=== PATIENT | female | born 1950 | race Caucasian/White ===

== ENCOUNTER → 2016-10-24 | Outpatient (CLI) | payer OTHER ==
[~2016-10-24] MED LIST: CITA20TA4 PO; DICL50TA3 PO; MULT-513 PO; SIMV40TA2 PO; VITACAP37 PO
== END | disposition home or self-care (01) ==
LOC: C.LAB 13:00 → MERGE 13:00
PROVIDERS: ATTEND Family Medicine
DX: Z11.59 Encounter for screening for other viral diseases (principal)

== ENCOUNTER → 2017-02-13 | Outpatient (CLI) | payer OTHER ==
[2017-02-13 17:46] LABS: ALT/SGPT 62 U/L (12-78); BLOOD UREA NITROGEN 13 mg/dl (7-18); BUN/CREATININE RATIO 18.8 (10-20); CALCIUM 8.7 mg/dl (8.5-10.1); CARBON DIOXIDE 24 mmol/L (21-32); CHLORIDE 109 mmol/L (98-107); GLUCOSE 89 mg/dl (70-99); POTASSIUM 4.4 mmol/L (3.5-5.1); SODIUM 141 mmol/L (136-145)
[2017-02-13 17:50] LABS: CHOLESTEROL 194 mg/dl (0-200); HDL CHOLESTEROL 48 mg/dl; LDL CHOLESTEROL CALCULATED 115 mg/dl; TRIGLYCERIDES 153 mg/dl (0-150); VERY LOW DENSITY LIPOPROT CALC 31 mg/dl
== END | disposition home or self-care (01) ==
LOC: C.LABPBG 13:56 → MERGE 13:56
PROVIDERS: ATTEND Family Medicine
DX: E78.00 Pure hypercholesterolemia, unspecified (principal); I10 Essential (primary) hypertension

== ENCOUNTER 2017-06-06 18:33 | Emergency (ER) | payer OTHER ==
[~2017-06-06] VITALS: Ht 160 cm; Wt 96.9 kg
[2017-06-06 18:39] VITALS: TEMP 36.7; Ht 160 cm; Wt 96.9 kg
[2017-06-06] MEDS ORDERED: MULT-513 PO (19:12)
[2017-06-06] MEDS ORDERED: DICL50TA3 PO (19:12)
[2017-06-06] MEDS ORDERED: VITACAP37 PO (19:12)
[2017-06-06] MEDS ORDERED: SIMV40TA2 PO (19:12)
[2017-06-06] MEDS ORDERED: CITA20TA4 PO (19:12)
--- NOTE | 2017-06-06 19:59 | EMERGENCY ROOM VISIT NOTE ---
ED Visit Note First contact with patient: 18:53 CHIEF COMPLAINT: Leg swelling and pain HISTORY OF PRESENT ILLNESS: This 67-year-old female patient presents to the emergency department with complaint of gradual onset of swelling and a steady pain in the left leg since yesterday. There has been no injury to the leg, no fever, and no unusual activity which may have strained a muscle recently. There has not been a long period of immobilization or long car or plane ride recently. There is no history of blood clots in the veins of the legs. Patient reports history of a pinched nerve in her lower back that required surgery many years ago, she has resultant foot drop in her left foot because of this. She states that she gets swelling in both legs intermittently for the past several years, but feels that the swelling in her left leg has been worse the past few days. She denies any chest pain, shortness of breath, palpitations , dizziness or syncope. REVIEW OF SYSTEMS: Head: No headache, injury or neck pain. Neurological: No headache, new changes in mental status, vertigo, focal weakness, numbness. Cardiac: No chest pain, diaphoresis, dyspnea on exertion, orthopnea, or palpitations. Respiratory: No cough, change in sputum, wheezes, hemoptysis, shortness of breath, or stridor. Gastrointestinal: No abdominal pain, blood in stools, diarrhea, loss of appetite, nausea, or vomiting. General: No fever or chills, fatigue, loss of appetite, or significant recent weight gain or loss. PMH: Hyperlipidemia, osteoarthritis, depression. SOCIAL HISTORY: Patient lives at home. PHYSICAL EXAM: Vital Signs: Reviewed Nurse's notes. HEART: Regular rate and rhythm without murmurs, ectopy, gallops, or rubs. LUNGS: Clear to auscultation and breath sounds equal, no wheezes, rales, or rhonchi. ABDOMEN: Soft, non- tender, no hepatosplenomegaly, or masses. NEUROLOGICAL: Alert oriented, coheent. PRERL, EOMs full, gait normal. EXTREMITIES: No cyanosis, edema, joint tenderness or effusion. Pulses equal bilaterally. There is redness, swelling, and tenderness of the calf. No cords can be palpated and Nicholas's sign is negative. The skin of the affected area is warmer than the other leg. There is no lymphangitic streaking. Negative straight leg raise. No midline lumbar spine tenderness to palpation. Normal sensation, strength, reflexes to bilateral lower extremities. EMERGENCY DEPARTMENT COURSE: I examined the patient. Differential diagnosis includes DVT, muscle cramp/spasm, muscle strain/sprain, sciatica. The patient has no exam findings concerning for radiculopathic pain. No red flags on history or exam. Ultrasound exam of the left leg does not show any evidence of deep venous thrombosis or other abnormality. Patient was updated on all results and plan for discharge. She was encouraged to follow up with her PCP regarding her left leg pain. She was also encouraged to wear compression stockings for her bilateral lower extremity swelling. The patient was given return precautions should her symptoms worsen, she verbalized understanding. The patient was discharged home in stable condition and ambulatory. Medication Reconciliation: I attest that I have personally reviewed the patient' s current medication list. Blood pressure screening: The patient was found to have an elevated blood pressure and was referred to their primary doctor for recheck and further treatment. Current/Historical Medications Scheduled Citalopram Hydrobromide (Citalopram Hydrobromide), 1 TAB PO DAILY Diclofenac (Voltaren), 50 MG PO BID Multivitamins/Minerals (Mvi With Minerals), 1 TAB PO DAILY Simvastatin (Zocor), 40 MG PO QAM Vitamin E (E-400), 400 UNITS PO DAILY Allergies Coded Allergies: Amoxicillin (Verified Allergy, Severe, HIVES, 06/06/17) Penicillins (Verified Allergy, Severe, HIVES, 06/06/17) Vital Signs Date Time Temp Pulse Resp B/P (MAP) Pulse Ox O2 Delivery O2 Flow Rate FiO2 06/06/17 21:00 82 18 134/76 93 Room Air 06/06/17 18:39 36.7 90 18 188/106 93 Room Air Departure Information Impression Primary Impression: Leg pain, left Dispostion Home / Self-Care Condition GOOD Referrals Janell Perea MD (PCP) Patient Instructions ED Leg Swelling Bilateral, ED Muscle Pain Leg Cramps, [facility] Additional Instructions Stay off of the left leg as much as possible and keep it elevated. Apply heat to the swollen, sore area frequently over the next 2 days. You may try wearing compression stockings to both legs to help reduce swelling. Apply these first thing in the morning and wear throughout the day to help reduce swelling in your legs. Ibuprofen or Aleve if needed for pain. Take as directed. See your own doctor if the symptoms do not improve.
--- NOTE | 2017-06-06 20:01 | DIAGNOSTIC IMAGING REPORT ---
ULTRASOUND LEFT VENOUS DOPP LOWER EXT UNILAT CLINICAL HISTORY: Left leg swelling PAIN COMPARISON STUDY: No previous studies for comparison. FINDINGS: Real-time and color flow Doppler imaging were performed. Flow was seen within the femoral, popliteal and calf veins with no intraluminal thrombus demonstrated. The saphenous vein is patent. There is a popliteal cyst measuring 46 x 9 x 26 mm. IMPRESSION: No evidence of left lower extremity DVT. Electronically signed by: Sarmad Louis M.D. 06/06/2017 8:00 PM Dictated Date/Time: 06/06/2017 7:59 PM
[2017-06-06 21:00] VITALS: BP 134/76; PULSE 82; O2SAT 93
== END 2017-06-06 21:22 | disposition home or self-care (01) ==
LOC: MERGE 18:36 → C.EDB 18:36 → C.EDC 21:22
DX: M79.605 Pain in left leg (principal); R60.0 Localized edema; E78.5 Hyperlipidemia, unspecified; M19.90 Unspecified osteoarthritis, unspecified site; F32.9 Major depressive disorder, single episode, unspecified

== ENCOUNTER → 2017-06-19 | Outpatient (CLI) | payer OTHER ==
--- NOTE | 2017-06-19 12:05 | DIAGNOSTIC IMAGING REPORT ---
L HIP UNILATERAL 2 VIEWS HISTORY: 67 years-old Female M25.552 Left hip painM54.5 Lumbar painPt with acute on chronic l acute on chronic left hip pain COMPARISON: None available TECHNIQUE: 2 views of the left hip FINDINGS: Mild degenerative changes of the left femoral acetabular joint are noted without acute fracture or dislocation. Mild degenerative changes of the left femoral acetabular joint are also present. IMPRESSION: Mild left hip degenerative changes without acute fracture or dislocation. The above report was generated using voice recognition software. It may contain grammatical, syntax or spelling errors. Electronically signed by: Jese Wolf M.D. 06/19/2017 12:03 PM Dictated Date/Time: 06/19/2017 12:02 PM
--- NOTE | 2017-06-19 12:18 | DIAGNOSTIC IMAGING REPORT ---
L-SPINE MIN 4 VIEWS ROUTINE CLINICAL HISTORY: 67 years-old Female presenting with M25.552 Left hip painM54.5 Lumbar painPt with acute on chronic l. TECHNIQUE: Frontal, bilateral oblique, lateral, and coned in lateral views of the lumbar spine were obtained. COMPARISON: None. FINDINGS: No significant scoliosis. Normal lumbar lordosis. Vertebral bodies maintain normal height and alignment. Intervertebral disc height loss at L3-4. Anterior osteophytosis noted at nearly every level. No radiographic evidence of fracture or subluxation. IMPRESSION: Mild multilevel degenerative changes, most severe at L3-4. Electronically signed by: Noah Townsend M.D. 06/19/2017 12:16 PM Dictated Date/Time: 06/19/2017 12:15 PM
== END | disposition home or self-care (01) ==
LOC: C.RAD1850 11:42
PROVIDERS: ATTEND Family Medicine
DX: M25.552 Pain in left hip (principal); M54.5 Low back pain

== ENCOUNTER → 2017-07-16 | Outpatient (CLI) | payer OTHER | END | disposition home or self-care (01) | LOC: C.LABSPEC 13:08 | PROVIDERS: ATTEND Physician Assistant | DX: J02.9 Acute pharyngitis, unspecified (principal) ==

== ENCOUNTER → 2017-11-05 | Outpatient (CLI) | payer OTHER ==
[~2017-11-05] MED LIST changes: +LEVO1TAB35 PO; +PRVHFAIN INH
[2017-11-05 17:48] LABS: ALT/SGPT 62 U/L (12-78); BLOOD UREA NITROGEN 14 mg/dl (7-18); CALCIUM 9.9 mg/dl (8.5-10.1); CARBON DIOXIDE 25 mmol/L (21-32); CREATININE 0.79 mg/dl (0.60-1.20); GLUCOSE 102 mg/dl (70-99); POTASSIUM 4.1 mmol/L (3.5-5.1); SODIUM 138 mmol/L (136-145)
[2017-11-05 17:52] LABS: CHOLESTEROL 174 mg/dl (0-200); LDL CHOLESTEROL CALCULATED 101 mg/dl
== END ==
LOC: C.LABPBG 13:11
PROVIDERS: ATTEND Family Medicine
DX: E78.00 Pure hypercholesterolemia, unspecified (principal); I10 Essential (primary) hypertension

== ENCOUNTER 2017-11-08 17:44 | Inpatient (IN) | payer OTHER ==
[~2017-11-08] VITALS: Ht 160 cm; Wt 92.4 kg
[~2017-11-08 17:44] MED LIST changes: -LEVO1TAB35 PO; -PRVHFAIN INH
[2017-11-08] MEDS ORDERED: HYDROmorphone INJ 1 MG/ML SYR IV STA (18:09)
[2017-11-08] MEDS ORDERED: ONDANSETRON INJ 2 MG/ML 2 ML VIAL IV STA (18:09)
[2017-11-08] MEDS ORDERED: NICOTINE 21 MG/24 HR TDSY TD STA (18:09)
[2017-11-08] MEDS ORDERED: LIDODERM (LIDOCAINE) PATCH 5% TD STA (18:09)
[2017-11-08] MEDS ORDERED: KETOROLAC TROMETHAMINE 30 MG/ML VIAL IV STA (18:09)
[2017-11-08 18:29] LABS: BASO % 0.1 %; BASO ABS # 0.01 K/uL (0-0.2); HEMATOCRIT 42.3 % (37-47); IG# 0.23 K/uL (0.00-0.02); LYMPH % 6.8 %; LYMPH ABS # 1.29 K/uL (1.2-3.4); MEAN CELL VOLUME 91.6 fL (80-100); MEAN CORPUSCULAR HEMOGLOBIN 32.5 pg (25-34); MEAN CORPUSCULAR HGB CONC 35.5 g/dl (32-36); MEAN PLATELET VOLUME 9.7 fL (7.4-10.4); MONO % 5.6 %; MONO ABS # 1.07 K/uL (0.11-0.59); NEUT % 86.3 %; NEUT ABS # 16.42 K/uL (1.4-6.5); PLATELET COUNT 201 K/uL (130-400); RED CELL DISTRIBUTION WIDTH CV 12.9 % (11.5-14.5); RED CELL DISTRIBUTION WIDTH SD 43.3 fL (36.4-46.3); WHITE BLOOD COUNT 19.02 K/uL (4.8-10.8)
[2017-11-08] MEDS ORDERED: OPTIRAY 320 IV PRN (18:30)
[2017-11-08] MEDS ORDERED: ALBUTEROL 0.083% NEBU SOLN 3 ML VIAL INH STA ×2 (18:57→20:01)
[2017-11-08 19:45] LABS: ALBUMIN 3.4 gm/dl (3.4-5.0); ALKALINE PHOSPHATASE 53 U/L (45-117); ALT/SGPT 36 U/L (12-78); BLOOD UREA NITROGEN 28 mg/dl (7-18); CALCIUM 8.9 mg/dl (8.5-10.1); CARBON DIOXIDE 21 mmol/L (21-32); CKMB 2.1 ng/ml (0.5-3.6); CREATININE 1.07 mg/dl (0.60-1.20); GLUCOSE 116 mg/dl (70-99); LIPASE 54 U/L (73-393); SODIUM 130 mmol/L (136-145); TOTAL PROTEIN 7.8 gm/dl (6.4-8.2)
--- NOTE | 2017-11-08 19:54 | DIAGNOSTIC IMAGING REPORT ---
CT OF THE CHEST WITH IV CONTRAST CLINICAL HISTORY: Right sided chest pain. COMPARISON STUDY: No previous studies for comparison. TECHNIQUE: Following IV administration of 93 mL of Optiray-320, helical axial images of the chest were obtained. Sagittal and coronal reconstructions were viewed as well as maximal intensity projections on an independent 3-D workstation. A dose lowering technique was utilized adhering to the principles of ALARA. CT DOSE: 807.04 mGy.cm FINDINGS: Mildly enlarged right hilar lymph node measures 1.2 cm in short axis. The size of the heart is normal. There is a small hiatal hernia. There is no pericardial effusion. No pneumothorax or pleural effusion is noted. There is extensive dense right lower lobe consolidation which occupies 70% of the right lower lobe. There is no cavitation. Central airways are patent. There is mild lingular opacity. Note is made of mild right upper lobe opacity that measures approximate 1.5 cm. There is no pneumothorax. Bony thorax is unremarkable. Fatty infiltration of the liver is noted. IMPRESSION: 1. Extensive dense right lower lobe consolidation consistent with pneumonia. No central obstructing lesion. A follow-up chest CT in one month to ensure resolution is recommended. 2. Mild right hilar lymphadenopathy which is likely reactive. 3. 1.5 cm subpleural right upper lobe opacity which favors scarring. However, this can be assessed on follow-up CT. 4. Fatty liver. Electronically signed by: Dominick Hackett M.D. 11/08/2017 7:52 PM Dictated Date/Time: 11/08/2017 7:44 PM
[2017-11-08] MEDS ORDERED: CEFEPIME IV 2,000 MG in DEXTROSE 5% 100ML 100 ML IV STA (20:00)
[2017-11-08] MEDS ORDERED: LEVAQUIN 750MG / 150ML D5W IV STA (20:00)
[2017-11-08] MEDS ORDERED: ACETAMINOPHEN 500 MG TAB PO STA (20:11)
[2017-11-08 20:16] LABS: INFLUENZA B ANTIGEN Neg for Influ B (NEG)
--- NOTE | 2017-11-08 20:20 | EMERGENCY ROOM VISIT NOTE ---
History Report prepared by Guerita: Anitra Romo Under the Supervision of: Dr. Manolo Guerrero M.D. First contact with patient: 17:51 Chief Complaint: FLANK PAIN Stated Complaint: RIGHT SIDE PAIN, SHARP History of Present Illness The patient is a 67 year old female who presents to the Emergency Room with complaints of constant right sided flank pain starting last night. The patient states that the pain is more towards her back and does not radiate to the front. She states that it feels sharp. She reports that the pain is worse with coughing and deep breathing. The patient complains of a cough. The patient denies ever having this before. She notes that she smokes 1/2 a pack of cigarettes a day. Source of History: patient Onset: last night Position: other (right flank) Quality: sharp Timing: constant Modifying Factors (Worsening): breathing, other (coughing) Associated Symptoms: + cough Review of Systems See HPI for pertinent positives & negatives. A total of 10 systems reviewed and were otherwise negative. Past Medical & Surgical Medical Problems: (1) Acute respiratory failure with hypoxia (2) Hx of bronchitis (3) Pneumonia involving right lung Surgical Problems: (1) Knee joint replacement status Family History Diabetes mellitus Heart disease Social History Smoking Status: Current Every Day Smoker Alcohol Use: none Marital Status: Housing Status: lives with significant other Occupation Status: unemployed Current/Historical Medications Scheduled Citalopram Hydrobromide (Citalopram Hydrobromide), 1 TAB PO DAILY Diclofenac (Voltaren), 50 MG PO BID Levofloxacin (Levaquin), 750 MG PO DAILY Multivitamins/Minerals (Mvi With Minerals), 1 TAB PO DAILY Simvastatin (Zocor), 40 MG PO QAM Vitamin E (E-400), 400 UNITS PO DAILY Scheduled PRN Albuterol (Ventolin Hfa), 1 PUFF INH Q4 PRN for SOB/Wheezing Allergies Coded Allergies: Amoxicillin (Verified Allergy, Intermediate, HIVES, 11/08/17) Penicillins (Verified Allergy, Intermediate, HIVES, 11/08/17) Physical Exam Vital Signs Date Time Temp Pulse Resp B/P (MAP) Pulse Ox O2 Delivery O2 Flow Rate FiO2 11/08/17 19:45 95 11/08/17 19:20 93 Nasal Cannula 4.0 11/08/17 19:15 87 18 126/70 85 Room Air 11/08/17 17:47 36.9 84 22 130/72 90 Room Air Physical Exam GENERAL: Patient is a healthy-appearing well-nourished HEAD: Normocephalic atraumatic EYES: Ocular movements intact pupils equal and react to light OROPHARYNX mucous membranes are moist no exudates present no erythema or edema present NECK: Supple no nuchal rigidity CHEST: Good equal expansion LUNGS: Clear and equal to auscultation CARDIAC: Normal S1 and S2 ABDOMEN: Soft nontender no guarding BACK: No CVA tenderness. Point tenderness to the right tenth rib area. EXTREMITIES: No pain upon palpation normal muscle strength in all groups no clubbing cyanosis or edema NEURO: Patient is following commands and answering questions appropriately. Alert and oriented x3 Cranial Nerves 2-12 grossly intact Medical Decision & Procedures ER Provider Diagnostic Interpretation: Radiology results as stated below per my review and radiologist interpretation: CT OF THE CHEST WITH IV CONTRAST CLINICAL HISTORY: Right sided chest pain. COMPARISON STUDY: No previous studies for comparison. TECHNIQUE: Following IV administration of 93 mL of Optiray-320, helical axial images of the chest were obtained. Sagittal and coronal reconstructions were viewed as well as maximal intensity projections on an independent 3-D workstation. A dose lowering technique was utilized adhering to the principles of ALARA. CT DOSE: 807.04 mGy.cm FINDINGS: Mildly enlarged right hilar lymph node measures 1.2 cm in short axis. The size of the heart is normal. There is a small hiatal hernia. There is no pericardial effusion. No pneumothorax or pleural effusion is noted. There is extensive dense right lower lobe consolidation which occupies 70% of the right lower lobe. There is no cavitation. Central airways are patent. There is mild lingular opacity. Note is made of mild right upper lobe opacity that measures approximate 1.5 cm. There is no pneumothorax. Bony thorax is unremarkable. Fatty infiltration of the liver is noted. IMPRESSION: 1. Extensive dense right lower lobe consolidation consistent with pneumonia. No central obstructing lesion. A follow-up chest CT in one month to ensure resolution is recommended. 2. Mild right hilar lymphadenopathy which is likely reactive. 3. 1.5 cm subpleural right upper lobe opacity which favors scarring. However, this can be assessed on follow-up CT. 4. Fatty liver. Electronically signed by: Dominick Hackett M.D. 11/08/2017 7:52 PM Dictated Date/Time: 11/08/2017 7:44 PM Laboratory Results Test 11/08/17 18:05 11/08/17 18:09 11/08/17 18:19 11/08/17 19:15 Total Bilirubin 1.4 mg/dl (0.2-1) Direct Bilirubin mg/dl (0-0.2) Aspartate Amino Transf (AST/SGOT) U/L (15-37) Alanine Aminotransferase (ALT/SGPT) 36 U/L (12-78) Alkaline Phosphatase 53 U/L (45-117) Total Creatine Kinase U/L (26-192) Creatine Kinase MB 2.1 ng/ml (0.5-3.6) Troponin I < 0.015 ng/ml (0-0.045) Total Protein 7.8 gm/dl (6.4-8.2) Albumin 3.4 gm/dl (3.4-5.0) Lipase 54 U/L (73-393) Creatine Kinase MB Ratio (0-3.0) Urine Color DK YELLOW Urine Appearance CLOUDY (CLEAR) Urine pH 5.0 (4.5-7.5) Urine Specific [place] 1.024 (1.000-1.030) Urine Protein 1+ (NEG) Urine Glucose (UA) NEG (NEG) Urine Ketones TRACE (NEG) Urine Occult Blood TRACE (NEG) Urine Nitrite NEG (NEG) Urine Bilirubin NEG (NEG) Urine Urobilinogen NEG (NEG) Urine Leukocyte Esterase NEG (NEG) Urine WBC (Auto) 1-5 /hpf (0-5) Urine RBC (Auto) 0-4 /hpf (0-4) Urine Hyaline Casts (Auto) /lpf (0-5) Urine Epithelial Cells (Auto) >30 /lpf (0-5) Urine Bacteria (Auto) NEG (NEG) Urine Pathogenic Casts /lpf (0) Influenza Type A Antigen Neg for Influ A (NEG) Influenza Type B Antigen Neg for Influ B (NEG) Labs reviewed by ED physician. Medications Administered Medications (Trade) Dose Ordered Sig/Lefty Route Start Time Stop Time Status Last Admin Dose Admin Lidocaine (Lidoderm Patch 5%) 1 patch NOW STAT TD 11/08/17 18:09 11/08/17 18:13 DC 11/08/17 19:13 1 PATCH Nicotine (Nicoderm Cq 21MG Patch) 1 patch NOW STAT TD 2/22/18 18:09 11/08/17 18:13 DC 11/08/17 18:34 1 PATCH Ketorolac Tromethamine (Toradol Inj) 30 mg NOW STAT IV 11/08/17 18:09 11/08/17 18:13 DC 11/08/17 18:33 30 MG Hydromorphone HCl (Dilaudid Inj) 1 mg NOW STAT IV 11/08/17 18:09 11/08/17 18:13 DC 11/08/17 18:34 1 MG Ondansetron HCl (Zofran Inj) 4 mg NOW STAT IV 11/08/17 18:09 11/08/17 18:13 DC 11/08/17 18:33 4 MG Albuterol Sulfate (Ventolin 0.083% 2.5MG/3ML Neb) 2.5 mg NOW STAT INH 11/08/17 18:57 11/08/17 18:58 DC 11/08/17 19:35 2.5 MG Cefepime HCl 2000 mg/Dextrose 122 ml @ 200 mls/hr NOW STAT IV 11/08/17 20:00 11/08/17 20:36 DC 11/08/17 20:23 200 MLS/HR Levofloxacin (Levaquin / D5W) 750 mg NOW STAT IV 11/08/17 20:00 11/08/17 20:01 DC 11/08/17 20:24 750 MG Albuterol Sulfate (Ventolin 0.083% 2.5MG/3ML Neb) 2.5 mg NOW STAT INH 11/08/17 20:01 11/08/17 20:02 DC 11/08/17 20:23 2.5 MG Acetaminophen (Tylenol Tab) 1,000 mg NOW STAT PO 11/08/17 20:11 11/08/17 20:12 DC 11/08/17 20:23 1,000 MG Vancomycin HCl (Vancomycin 1gm/ 270ml Nss) 1 gm NOW STAT IV 11/08/17 20:30 11/08/17 20:31 DC 11/08/17 22:47 1 GM ECG Per My Interpretation Indication: chest pain Rate (beats per minute): 116 Rhythm: sinus tachycardia Findings: other (no ST elevation or depression, normal axis) ED Course 180: Past medical records reviewed. The patient was evaluated in room A11B. A complete history and physical examination was performed. 1808: Ordered Zofran Inj 4 mg IV, Dilaudid Inj 1 mg IV, Toradol Inj 30 mg IV, Nicotine 1 patch TD, Lidocaine 1 patch TD. 1856: Ordered Albuterol Sulfate 2.5 mg INH. 1999: Ordered Levofloxacin 750 mg IV, Cefepime HCl 2000 mg/ Dextrose 122 ml @ 200 mls/hr IV. 2000: Ordered Albuterol Sulfate 2.5 mg INH. 2004: I reevaluated the patient and she is still requiring oxygen. 2010: Ordered Tylenol Tab 1000 mg PO. 2027: I discussed the patient's case with Dr. Manan LOYOLA Hospitalist, he has agreed to evaluate the patient for further management and care. 2029: Ordered Vancomycin HCl 1 gm IV. Medical Decision Differential diagnosis: Etiologies such as cardiac ischemia, aortic dissection, pulmonary embolism, pneumonia, pneumothorax, musculoskeletal, infections, pericarditis, myocarditis , esophageal rupture, gastrointestinal, as well as others were entertained. This is a 67-year-old female who presents emergency department complaining of right-sided chest pain. The patient was sent for CAT scan of the chest and appears to have a large pneumonia on CAT scan. She had a Lidoderm patch placed. The patient was pain cultured and started on Zosyn as well as Levaquin as well as vancomycin. She was also given Toradol and Dilaudid for the pain. The patient is requiring oxygen here in the emergency department therefore I did discuss the case with the hospitalist service who agreed to admit the patient. Patient was in agreement with the treatment plan. Medication Reconcilliation Current Medication List: was personally reviewed by me Blood Pressure Screening Patient's blood pressure: Normal blood pressure Blood pressure disposition: Did not require urgent referral Consults Time Called: 2019 Consulting Physician: Dr. Manan LOYOLA Hospitalist Returned Call: 2027 I discussed the patient's case with Dr. Manan LOYOLA Hospitalist, he has agreed to evaluate the patient for further management and care. Impression Primary Impression: Pneumonia Scribe Attestation The scribe's documentation has been prepared under my direction and personally reviewed by me in its entirety. I confirm that the note above accurately reflects all work, treatment, procedures, and medical decision making performed by me. Departure Information Dispostion Being Evaluated By Hospitalist Prescriptions Albuterol (Ventolin Hfa) 60 Puffs/5400 Mcg Aers 1 PUFF INH Q4 Y for SOB/Wheezing, #1 INHALER Prov: Hernandez Fox D.OCarmel 11/09/17 Levofloxacin (Levaquin) 750 Mg Tab 750 MG PO DAILY, #10 TAB Prov: Hernandez Fox D.O. 11/09/17 Referrals Janell Perea MD (PCP) Patient Instructions [facility] Problem Qualifiers Primary Impression: Pneumonia Pneumonia type: due to unspecified organism Laterality: unspecified laterality Lung location: unspecified part of lung Qualified Codes: J18.9 - Pneumonia, unspecified organism
[2017-11-08] MEDS ORDERED: VANCOMYCIN 1GM/270ML NSS IV STA (20:30)
[2017-11-08] MEDS ORDERED: MAGNESIUM HYDROXIDE SUSP 30 ML UDC PO PRN (20:45)
[2017-11-08] MEDS ORDERED: ACETAMINOPHEN 325 MG TAB PO PRN (20:45)
[2017-11-08] MEDS ORDERED: ALUMINUM/MAGNESIUM/SIMETH (MAALOX MAX) 30 ML UDC PO PRN (20:45)
[2017-11-08] MEDS ORDERED: ZOLPIDEM TARTRATE 5 MG TAB PO PRN (20:45)
[2017-11-08] MEDS ORDERED: POLYETHYLENE (MIRALAX) 17 GM PACK PO PRN (20:45)
[2017-11-08] MEDS ORDERED: VANCOMYCIN CONSULT ACTIVE PRN (21:00)
[2017-11-08] MEDS ORDERED: LEVALBUTEROL/IPRATROPIUM NEB INH SCH (21:00)
[2017-11-08] MEDS ORDERED: ONDANSETRON INJ 2 MG/ML 2 ML VIAL IV PRN (21:00)
[2017-11-08] MEDS ORDERED: CEFEPIME IV 1,000 MG in DEXTROSE 5% 100ML 100 ML IV SCH (21:00)
[2017-11-08] MEDS ORDERED: ONDANSETRON 8MG OD TAB PO PRN (21:00)
[2017-11-08] MEDS ORDERED: VANCOMYCIN 1GM/270ML NSS ONE ×2 (22:42→22:46)
--- NOTE | 2017-11-08 22:49 | History and Physical ---
History & Physical Date & Time of Service: Nov 08, 2017 at 22:49 Chief Complaint: Right Side Pain, Sharp Primary Care Physician: Janell Perea MD History of Present Illness Source: patient, family, spouse The patient is a 67-year-old female who presents to the emergency department with persistent sharp right sided flank pain radiating toward her back, worse with inspiration and coughing, that began since the previous evening. She has not had this type of pain before. She smokes one half pack per day. Family History Diabetes mellitus Heart disease Social History Smoking Status: Current Every Day Smoker Smokeless Tobacco Use: No Alcohol Use: none Drug Use: none Marital Status: Housing status: lives with family Occupational Status: unemployed Immunizations History of Influenza Vaccine: Unknown History of Tetanus Vaccine?: Unknown History of Pneumococcal: Unknown History of Hepatitis B Vaccine: Unknown Multi-Drug Resistant Organisms History of MDRO: No Allergies Coded Allergies: Amoxicillin (Verified Allergy, Intermediate, HIVES, 11/08/17) Penicillins (Verified Allergy, Intermediate, HIVES, 11/08/17) Home Medications Scheduled Citalopram Hydrobromide (Citalopram Hydrobromide), 1 TAB PO DAILY Diclofenac (Voltaren), 50 MG PO BID Multivitamins/Minerals (Mvi With Minerals), 1 TAB PO DAILY Simvastatin (Zocor), 40 MG PO QAM Vitamin E (E-400), 400 UNITS PO DAILY Review of Systems The patient denies chest pain, palpitations, lower extremity swelling, sore throat, fevers, chills, sweats, weight change, fatigue, nausea, vomiting, diarrhea , constipation, abdominal pain, pelvic pain, blood in urine or stool, dysuria, urinary frequency or urgency, lightheadedness , dizziness, headache, memory loss, loss of consciousness, rash, abnormal bruising or bleeding, imbalance, focal or generalized weakness, numbness or tingling in arms or legs, generalized arthralgias or myalgias, neck pain, or night sweats. The review of systems is otherwise negative other than for that already noted above, and at least 10 systems have been reviewed. Physical Exam Vital Signs Date Time Temp Pulse Resp B/P (MAP) Pulse Ox O2 Delivery O2 Flow Rate FiO2 11/08/17 19:45 95 11/08/17 19:20 93 Nasal Cannula 4.0 11/08/17 19:15 87 18 126/70 85 Room Air 11/08/17 17:47 36.9 84 22 130/72 90 Room Air The patient is awake, alert and oriented 3, well developed and well nourished, normocephalic and atraumatic, lying in bed and in no acute distress. HEENT--PERRL, EOMI, mucous membranes and oropharynx mildly dry. Neck--supple. No JVD. No bruits. Thyroid normal, trachea midline, no adenopathy. Heart--normal S1 and S2. No murmurs, rubs or gallops. Lungs--decreased breath sounds right base, scattered coarse breath sounds, no respiratory distress, no accessory muscle use. Abdomen--normal bowel sounds and soft. Nontender. Nondistended, no hernias or masses. Extremities--no cyanosis or clubbing. No edema. There are good distal pulses b/ l. Dermatologic--normal skin turgor, normal color, no abnormal lymph nodes, no rash. Neurologic--cranial nerves II through XII grossly intact. Rheumatologic--normal range of motion. Psychiatric--normal affect. Diagnostics Laboratory Results Results Past 24 Hours Test 11/08/17 17:52 11/08/17 18:05 11/08/17 18:09 11/08/17 18:19 Range/Units Creatine Kinase MB Ratio 0-3.0 White Blood Count 19.02 4.8-10.8 K/uL Red Blood Count 4.62 4.2-5.4 M/uL Hemoglobin 15.0 12.0-16.0 g/dL Hematocrit 42.3 37-47 % Mean Corpuscular Volume 91.6 80-100 fL Mean Corpuscular Hemoglobin 32.5 25-34 pg Mean Corpuscular Hemoglobin Concent 35.5 32-36 g/dl Platelet Count 201 130-400 K/uL Mean Platelet Volume 9.7 7.4-10.4 fL Neutrophils (%) (Auto) 86.3 % Lymphocytes (%) (Auto) 6.8 % Monocytes (%) (Auto) 5.6 % Eosinophils (%) (Auto) 0.0 % Basophils (%) (Auto) 0.1 % Neutrophils # (Auto) 16.42 1.4-6.5 K/uL Lymphocytes # (Auto) 1.29 1.2-3.4 K/uL Monocytes # (Auto) 1.07 0.11-0.59 K/uL Eosinophils # (Auto) 0.00 0-0.5 K/uL Basophils # (Auto) 0.01 0-0.2 K/uL RDW Standard Deviation 43.3 36.4-46.3 fL RDW Coefficient of Variation 12.9 11.5-14.5 % Immature Granulocyte % (Auto) 1.2 % Immature Granulocyte # (Auto) 0.23 0.00-0.02 K/uL Sodium Level 130 136-145 mmol/L Potassium Level 3.5-5.1 mmol/L Chloride Level 98 98-107 mmol/L Carbon Dioxide Level 21 21-32 mmol/L Anion Gap 11.0 3-11 mmol/L Blood Urea Nitrogen 28 7-18 mg/dl Creatinine 1.07 0.60-1.20 mg/dl Est Creatinine Clear Calc Drug Dose 53.6 ml/min Estimated GFR () 61.3 Estimated GFR (Non- 52.9 BUN/Creatinine Ratio 26.0 10-20 Random Glucose 116 70-99 mg/dl Calcium Level 8.9 8.5-10.1 mg/dl Total Bilirubin 1.4 0.2-1 mg/dl Direct Bilirubin 0-0.2 mg/dl Aspartate Amino Transf (AST/SGOT) 15-37 U/L Alanine Aminotransferase (ALT/SGPT) 36 12-78 U/L Alkaline Phosphatase 53 45-117 U/L Total Creatine Kinase 26-192 U/L Creatine Kinase MB 2.1 0.5-3.6 ng/ml Troponin I < 0.015 0-0.045 ng/ml Total Protein 7.8 6.4-8.2 gm/dl Albumin 3.4 3.4-5.0 gm/dl Lipase 54 73-393 U/L Urine Color DK YELLOW Urine Appearance CLOUDY CLEAR Urine pH 5.0 4.5-7.5 Urine Specific Goff 1.024 1.000-1.030 Urine Protein 1+ NEG Urine Glucose (UA) NEG NEG Urine Ketones TRACE NEG Urine Occult Blood TRACE NEG Urine Nitrite NEG NEG Urine Bilirubin NEG NEG Urine Urobilinogen NEG NEG Urine Leukocyte Esterase NEG NEG Urine WBC (Auto) 1-5 0-5 /hpf Urine RBC (Auto) 0-4 0-4 /hpf Urine Hyaline Casts (Auto) 0-5 /lpf Urine Epithelial Cells (Auto) >30 0-5 /lpf Urine Bacteria (Auto) NEG NEG Urine Pathogenic Casts 0 /lpf Test 11/08/17 19:15 11/08/17 22:28 Range/Units Influenza Type A Antigen Neg for Influ A NEG Influenza Type B Antigen Neg for Influ B NEG Microbiology Results 11/08/17 Blood Culture, Received Pending 11/08/17 Blood Culture, Received Pending Diagnostic Radiology Patient Name: CAMILO BATISTA Unit Number: [id number] Dictated: 11/08/171943 Transcribed: 11/08/171943 DELON Printed Date/Time: [~ rep prt dt]/[~ rep prt tm] [~ rep ct labl] - [~ rep ct ivnm] [facility] Radiology Department [place], [place] [id number] Dictated: 11/08/171943 Transcribed: 11/08/171943 JA Printed Date/Time: [~ rep prt dt]/[~ rep prt tm] [~ rep ct labl] - [~ rep ct ivnm] [~ rep ct add3]] CT OF THE CHEST WITH IV CONTRAST CLINICAL HISTORY: Right sided chest pain. COMPARISON STUDY: No previous studies for comparison. TECHNIQUE: Following IV administration of 93 mL of Optiray-320, helical axial images of the chest were obtained. Sagittal and coronal reconstructions were viewed as well as maximal intensity projections on an independent 3-D workstation. A dose lowering technique was utilized adhering to the principles of ALARA. CT DOSE: 807.04 mGy.cm FINDINGS: Mildly enlarged right hilar lymph node measures 1.2 cm in short axis. The size of the heart is normal. There is a small hiatal hernia. There is no pericardial effusion. No pneumothorax or pleural effusion is noted. There is extensive dense right lower lobe consolidation which occupies 70% of the right lower lobe. There is no cavitation. Central airways are patent. There is mild lingular opacity. Note is made of mild right upper lobe opacity that measures approximate 1.5 cm. There is no pneumothorax. Bony thorax is unremarkable. Fatty infiltration of the liver is noted. IMPRESSION: 1. Extensive dense right lower lobe consolidation consistent with pneumonia. No central obstructing lesion. A follow-up chest CT in one month to ensure resolution is recommended. 2. Mild right hilar lymphadenopathy which is likely reactive. 3. 1.5 cm subpleural right upper lobe opacity which favors scarring. However, this can be assessed on follow-up CT. 4. Fatty liver. Electronically signed by: Dominick Hackett M.D. 11/08/2017 7:52 PM Dictated Date/Time: 11/08/2017 7:44 PM The status of this report is Signed. Draft = Not yet reviewed or approved by Radiologist. Signed = Reviewed and approved by Radiologist. <AttendingPhy></AttendingPhy> <FamilyPhy>Janell Perea MD</FamilyPhy> < PrimaryPhy>Janell Perea MD</PrimaryPhy> <UnitNumber>[id number]</UnitNumber > <VisitNumber>[id number]</VisitNumber> <PatientName>CAMILO BATISTA</ PatientName> <DateOfBirth>1950</DateOfBirth> <Location>[facility]</Location> < ServiceDate>11/08/17</ServiceDate> <MNE>ESINDI</MNE> <OrderingPhy>Manolo Guerrero MD</OrderingPhy> <OrderingPhyMNE>f rep ord dr courtney</OrderingPhyMNE> < DictatingPhyMNE>f rep dict dr courtney</DictatingPhyMNE> <CCListMNE>f rep ct roz</ CCListMNE> <AdmittingPhyMNE>f pt admit dr courtney</AdmittingPhyMNE> <AttendingPhyMNE >f pt attend dr courtney</AttendingPhyMNE> <ConsultingPhyMNE>f pt consult dr courtney</ConsultingPhyMNE> <FamilyPhyMNE>f pt fam dr courtney</FamilyPhyMNE> <OtherPhyMNE>f pt other dr courtney</OtherPhyMNE> < PrimaryPhyMNE>f pt prim care dr courtney</PrimaryPhyMNE> <ReferringPhyMNE>f pt referring dr courtney</ReferringPhyMNE> EKG EKG shows sinus tachycardia at 119 bpm, PACs, no acute ST-T changes. Impression Assessment and Plan Acute respiratory failure with hypoxia/pneumonia involving right lower lobe/ tobacco use disorder/1.5 cm lesion right upper lobe-- Telemetry admission to monitor oxygen status. Vancomycin IV per pharmacokinetic monitoring Cefepime 1 g IV every 8 hours Levofloxacin 500 mg IV every 24 hours Duonebs every 4 hours while awake and every 2 hours when necessary. Solu-Medrol 40 mg IV every 8 hours Guaifenesin extended release 600 mg by mouth twice a day Nasal cannula oxygen titrate to keep pulse ox greater than or equal to 92% Sputum Gram stain and culture. Tobacco cessation counseling. Consider recommendation to pulmonary nodule program regarding right upper lobe lesion. Depression-- Continue citalopram daily Hyperlipidemia-- Continue simvastatin 40 mg daily. Recommend discontinuing vitamin E due to interaction issue with statin. Arthritis-- Continue Voltaren 50 mg p.o. twice daily Fatty liver-- Normal liver enzymes. May be related to obesity. Check a fasting lipid profile and hemoglobin A1c. Level of Care Telemetry Advanced Directives Existing Advance Directive: No Existing Living Will: No Existing Power of Data Control Clerk Supervisor: No Resuscitation Status FULL RESUSCITATION VTE Prophylaxis VTE Risk Assessment Done? Y/N: Yes Risk Level: Moderate Given or contraindicated: Unfractionated heparin SQ Social Service Consult None Apply
[2017-11-08 22:54] LABS: INR 1.1 (0.9-1.1); PTT PATIENT 31.9 SECONDS (21.0-31.0)
[2017-11-09] VITALS (8 sets, daily range): BP systolic 99–112; BP diastolic 58–74; PULSE 75–89; TEMP 36.4–36.9; O2SAT 92–96; Ht 160 cm; Wt 92.4 kg
[2017-11-09] MEDS ORDERED: IPRATROPIUM BROMIDE NEB SOLN 0.02% 2.5 ML VIAL INH PRN (00:30)
[2017-11-09] MEDS ORDERED: LEVALBUTEROL 1.25MG/0.5ML NEB INH PRN (00:30)
[2017-11-09] MEDS ORDERED: VANCOMYCIN INJ 1,000 MG in SODIUM CHLORIDE 0.9% 250ML 250 ML IV SCH (01:00)
[2017-11-09] MEDS ORDERED: CEFEPIME CONSULT ACTIVE PRN (01:15)
[2017-11-09] MEDS: DICLOFENAC SOD 25 MG TABEC PO SCH ×2 (01:29→07:40)
[2017-11-09] MEDS: METHYLPREDNISOLONE IV 40 MG in SYRINGE 0 ML IV SCH ×2 (01:29→07:40)
[2017-11-09] MEDS: GUAIFENESIN 600 MG TABCR PO SCH ×2 (01:29→07:40)
[2017-11-09] MEDS: LEVALBUTEROL 1.25MG/0.5ML NEB INH SCH ×2 (01:55→07:06)
[2017-11-09] MEDS: IPRATROPIUM BROMIDE NEB SOLN 0.02% 2.5 ML VIAL INH SCH ×2 (01:55→07:06)
[2017-11-09] MEDS ORDERED: INFLUENZA ADMINISTRATION CHARGE ONE (04:15)
[2017-11-09] MEDS ORDERED: INFLUENZA VACCINE HIGH DOSE 65+ 0.5 ML SYR IM. ONE (04:15)
[2017-11-09 06:17] LABS: HEMATOCRIT 40.2 % (37-47); HEMOGLOBIN 14.1 g/dL (12.0-16.0); MEAN CELL VOLUME 92.2 fL (80-100); MEAN CORPUSCULAR HEMOGLOBIN 32.3 pg (25-34); MEAN CORPUSCULAR HGB CONC 35.1 g/dl (32-36); MEAN PLATELET VOLUME 9.8 fL (7.4-10.4); PLATELET COUNT 193 K/uL (130-400); RED CELL DISTRIBUTION WIDTH CV 13.1 % (11.5-14.5); RED CELL DISTRIBUTION WIDTH SD 44.1 fL (36.4-46.3); WHITE BLOOD COUNT 15.43 K/uL (4.8-10.8)
[2017-11-09 06:45] LABS: BASO % 0.1 %; BASO ABS # 0.01 K/uL (0-0.2); EOS % 0.1 %; EOS ABS # 0.01 K/uL (0-0.5); IG# 0.07 K/uL (0.00-0.02); LYMPH % 4.7 %; LYMPH ABS # 0.73 K/uL (1.2-3.4); MONO % 4.8 %; MONO ABS # 0.74 K/uL (0.11-0.59); NEUT % 89.8 %; NEUT ABS # 13.87 K/uL (1.4-6.5)
[2017-11-09 06:48] LABS: CALCIUM 8.9 mg/dl (8.5-10.1); CREATININE 1.03 mg/dl (0.60-1.20); POTASSIUM 3.6 mmol/L (3.5-5.1)
[2017-11-09 07:16] LABS: HEMOGLOBIN A1C 6.3 % (4.5-5.6)
[2017-11-09] MEDS ORDERED: CEFEPIME IV 2,000 MG in SYRINGE 7.5 ML IV SCH (08:00)
[2017-11-09] MEDS ORDERED: ENOXAPARIN 40 MG/0.4 ML SYR SC SCH (09:00)
[2017-11-09] MEDS ORDERED: SIMVASTATIN 40 MG TAB PO SCH (09:00)
[2017-11-09] MEDS ORDERED: CEROVITE ADV FORMULA TAB PO SCH (09:00)
[2017-11-09] MEDS ORDERED: CITALOPRAM 20 MG TAB PO SCH (09:00)
[2017-11-09] MEDS ORDERED: PRVHFAIN INH (09:50)
[2017-11-09] MEDS ORDERED: LEVO1TAB35 PO (09:50)
--- NOTE | 2017-11-09 09:59 | Discharge Instructions ---
Discharge Instructions Date of Service Nov 09, 2017. Admission Reason for Admission: Acute Respiratory Failure With Hypoxia, Pneumonia Discharge Discharge Diagnosis / Problem: pneumonia Discharge Goals Goal(s): Diagnostic testing, Therapeutic intervention Activity Recommendations Activity Limitations: resume your previous activity . Instructions / Follow-Up Instructions / Follow-Up pneumonia -you are fortunately getting better way faster than expected, and it is safe to get you home -we'll need to continue antibiotics to clear the infection - it's always difficult to tell duration of antibiotics because while we used to treat everyone for 10-14 days, we've seen more and more through research that some pneumonias get better in as little as 5-7 days. to balance this, the prescription is for 10 more days (next dose tonight), but as you follow up at Dr Perea's office next week, if you're really doing well she can shorten the duration of the antibiotics appropriately (or conversely, if you're doing worse than expected, they can lengthen the course of antibiotics if needed)(as we discussed, levaquin usually is well tolerated; if it makes you sick to your stomach take it with food. a weird rare side effect is that it can make people more prone to tendonitis or even a tendon tear - again very rare - but for the next month or so take it easy, refrain from any heavy lifting/overhead lifting/ endurance activities etc) -use the albuterol inhaler as needed for shortness of breath, tight cough, wheezing, or feeling like you can't bring something up (it opens up airways to allow better airflow; it can make you feel jittery or anxious for a little after taking) -one of the most common problems we see after pneumonias is people simply not realizing how long it can take to get better, and then seeking care for really what amounts to normal pace of recovery. the most common scenario is that for the next few days the cough may get worse before it gets better (as your immune system and the antibiotics kill the bacteria, often the pus has to make it's way out of your lungs, so the cough picks up and looks "yuckier" - this is about 80% of people), then the cough often will take several weeks to totally go away. most notoriously, the fatigue after a pneumonia can take a solid 4-6 weeks to resolve. you'll have day-to-day improvement, but often that is so slow that it's hard to see - better is to tar kettle runner your improvement in 3-4 day intervals, giving yourself enough time to truly see improvement (usually this fatigue is just a nonspecific "i've been off the antibiotics and the cough is getting better, why do i just feel so washed out and tired all the time?!" and it does get better, it just usually takes way longer than people anticipate) stop smoking!!! this is critical to keeping you from getting more and more of these kinds of illnesses. throw away the cigarettes, lighters, etc to make it harder on yourself to restart; by next week if stopping has been a struggle, then talk w Dr Perea about what other things she can do to help. in about 6 weeks have her get pulmonary function tests (where you blow out and it's measured, you breathe in and it's measured, etc) -- this is to look for evidence of COPD ("smoker's lung") which, if present, is usually pretty easy to manage but will allow Dr Newberry to do a few simple things (usually with inhalers) to help keep your breathing from getting into trouble we'll want to get follow up labwork on you next week (CBC) that can be done at your follow up visit with Dr Newberry. this is simply to ensure that your white blood cells (up with infection) have gotten back to normal Current Hospital Diet Patient's current hospital diet: Regular Diet Discharge Diet Recommended Diet: Regular Diet Pending Studies Studies pending at discharge: no Laboratory Results Hemoglobin A1c Test 11/09/17 05:22 Range/Units Estimated Average Glucose 134 mg/dl Hemoglobin A1c 6.3 H 4.5-5.6 % Lipid Panel Test 11/09/17 05:22 Range/Units Triglycerides Level 171 H 0-150 mg/dl Cholesterol Level 114 0-200 mg/dl HDL Cholesterol 14 mg/dl Cholesterol/HDL Ratio 8.1 LDL Cholesterol, Calculated 66 mg/dl Medical Emergencies . Who to Call and When: Medical Emergencies: If at any time you feel your situation is an emergency, please call 911 immediately. . Non-Emergent Contact Non-Emergency issues call your: Primary Care Provider . . "Provider Documentation" section prepared by Hernandez Fox. . VTE Core Measure Inpt VTE Proph given/why not?: Unfractionated heparin SQ
[2017-11-09] MEDS ORDERED: VANCOMYCIN INJ 1,250 MG in SODIUM CHLORIDE 0.9% 250ML 250 ML IV SCH (16:00)
[2017-11-09] MEDS ORDERED: LEVOFLOXACIN / D5W 500 MG in PREMIXED IN D5W 100 ML IV SCH (20:00)
--- NOTE | 2017-11-09 20:11 | Discharge Summary ---
Discharge Summary Date of Service Nov 09, 2017. Discharge Summary Admission Date: Nov 08, 2017 at 20:43 Discharge Date: Nov 09, 2017 Discharge Disposition: Home Principal Diagnosis: community acquired pneumonia w sepsis present on admission Immunizations: Have You Had Influenza Vaccine: Unknown History of Tetanus Vaccine?: Unknown History of Pneumococcal: Unknown History of Hepatitis B Vaccine: Unknown Procedures: CT OF THE CHEST WITH IV CONTRAST CLINICAL HISTORY: Right sided chest pain. COMPARISON STUDY: No previous studies for comparison. TECHNIQUE: Following IV administration of 93 mL of Optiray-320, helical axial images of the chest were obtained. Sagittal and coronal reconstructions were viewed as well as maximal intensity projections on an independent 3-D workstation. A dose lowering technique was utilized adhering to the principles of ALARA. CT DOSE: 807.04 mGy.cm FINDINGS: Mildly enlarged right hilar lymph node measures 1.2 cm in short axis. The size of the heart is normal. There is a small hiatal hernia. There is no pericardial effusion. No pneumothorax or pleural effusion is noted. There is extensive dense right lower lobe consolidation which occupies 70% of the right lower lobe. There is no cavitation. Central airways are patent. There is mild lingular opacity. Note is made of mild right upper lobe opacity that measures approximate 1.5 cm. There is no pneumothorax. Bony thorax is unremarkable. Fatty infiltration of the liver is noted. IMPRESSION: 1. Extensive dense right lower lobe consolidation consistent with pneumonia. No central obstructing lesion. A follow-up chest CT in one month to ensure resolution is recommended. 2. Mild right hilar lymphadenopathy which is likely reactive. 3. 1.5 cm subpleural right upper lobe opacity which favors scarring. However, this can be assessed on follow-up CT. 4. Fatty liver. Electronically signed by: Dominick Hackett M.D. 11/08/2017 7:52 PM Last Resulted CBC 11/09/17 05:22 Red Blood Count 4.36, Mean Corpuscular Volume 92.2, Mean Corpuscular Hemoglobin 32.3, Mean Corpuscular Hemoglobin Concent 35.1, Mean Platelet Volume 9.8, Neutrophils (%) (Auto) 89.8, Lymphocytes (%) (Auto) 4.7, Monocytes (%) (Auto) 4.8, Eosinophils (%) (Auto) 0.1, Basophils (%) (Auto) 0.1, Neutrophils # (Auto) 13.87, Lymphocytes # (Auto) 0.73, Monocytes # (Auto) 0.74, Eosinophils # (Auto) 0.01, Basophils # (Auto) 0.01 Last Resulted BMP 11/09/17 05:22 Medication Reconciliation New Medications: Albuterol (Ventolin Hfa) 60 Puffs/5400 Mcg Aers 1 PUFF INH Q4 PRN for SOB/Wheezing, #1 INHALER Levofloxacin (Levaquin) 750 Mg Tab 750 MG PO DAILY, #10 TAB Continued Medications: Citalopram Hydrobromide (Citalopram Hydrobromide) 20 Mg Tab 1 TAB PO DAILY for 90 Days, #90 TAB 3 Refills Diclofenac (Voltaren) 50 Mg Tabec 50 MG PO BID, TAB Multivitamins/Minerals (Mvi With Minerals) Tab 1 TAB PO DAILY, TAB Simvastatin (Zocor) 40 Mg Tab 40 MG PO QAM, TAB Vitamin E (E-400) 400 Unit Cap 400 UNITS PO DAILY Discharge Exam Physical Exam: General Appearance: no apparent distress Eyes: EOMI ENT: hearing grossly normal Neck: trachea midline Respiratory/Chest: no respiratory distress, no accessory muscle use, + rales (base R otheriwse no r/r/w good effort no accessory muscles) 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, alert, normal mood/affect Skin: normal color, warm/dry Hospital Course acute hypoxia - due to CAP w sepsis -hypoxia improved quickly - ambulating in halls on room air no dyspnea and adequate pulse ox CAP w sepsis present on admission -improved rapidly -stable for home -levaquin, albuterol prn -PCP next week tobacco abuse, possible COPD -counselled on cessation - she's trying to quit now using this as motivating factor -did briefly show pulse ox in high 80s when walking without any significant dyspnea to show for it (quickly increased to >90 again) - but suspect she has some degree of undiagnosed underlyign COPD -for PFTs ~4-6wks prerenal state -due to CAP/sepsis -doing well mild hyponatremia -BMP in office next week as well otherwise as above and as per dc instructions CBC in office next week as well Total Time Spent: Greater than 30 minutes This includes examination of the patient, discharge planning, medication reconciliation, and communication with other providers. Discharge Instructions Please refer to the electronic Patient Visit Report (Discharge Instructions) for additional information. Additional Copies To Janell Perea MD
[2017-11-11] MEDS ORDERED: VANCOMYCIN TROUGH ONE (03:30)
== END 2017-11-09 13:00 | disposition home or self-care (01) | DRG 871 ==
LOC: C.EDB 17:45 → C.MED 20:43 → ENRESERV 22:43
PROVIDERS: ADMIT Hospitalist; ATTEND Family Medicine
DX: A41.9 Sepsis, unspecified organism (principal); J18.1 Lobar pneumonia, unspecified organism; J44.0 Chronic obstructive pulmonary disease with (acute) lower respiratory infection; R09.02 Hypoxemia; R91.1 Solitary pulmonary nodule; F17.210 Nicotine dependence, cigarettes, uncomplicated; F32.9 Major depressive disorder, single episode, unspecified; E78.5 Hyperlipidemia, unspecified; M19.90 Unspecified osteoarthritis, unspecified site; K76.0 Fatty (change of) liver, not elsewhere classified; E66.9 Obesity, unspecified; Z68.36 Body mass index [BMI] 36.0-36.9, adult; Z79.1 Long term (current) use of non-steroidal anti-inflammatories (NSAID); Z79.899 Other long term (current) drug therapy; Z88.0 Allergy status to penicillin; Z82.49 Family history of ischemic heart disease and other diseases of the circulatory system; Z83.3 Family history of diabetes mellitus

== ENCOUNTER → 2017-11-14 | Outpatient (CLI) | payer OTHER ==
[~2017-11-14] MED LIST changes: +HYDR-5688 PO; +LEVO1TAB35 PO; +LIDO1PAD2 TD; +NYSS/ PO; +PRVHFAIN INH
[2017-11-14 12:53] LABS: BASO % 0.4 %; BASO ABS # 0.04 K/uL (0-0.2); EOS % 1.9 %; EOS ABS # 0.19 K/uL (0-0.5); HEMATOCRIT 44.3 % (37-47); HEMOGLOBIN 15.3 g/dL (12.0-16.0); IG# 0.14 K/uL (0.00-0.02); LYMPH % 22.4 %; LYMPH ABS # 2.28 K/uL (1.2-3.4); MEAN CELL VOLUME 93.5 fL (80-100); MEAN CORPUSCULAR HEMOGLOBIN 32.3 pg (25-34); MEAN CORPUSCULAR HGB CONC 34.5 g/dl (32-36); MEAN PLATELET VOLUME 9.9 fL (7.4-10.4); MONO % 8.2 %; MONO ABS # 0.83 K/uL (0.11-0.59); NEUT % 65.7 %; PLATELET COUNT 364 K/uL (130-400); RED CELL DISTRIBUTION WIDTH CV 13.6 % (11.5-14.5); RED CELL DISTRIBUTION WIDTH SD 46.9 fL (36.4-46.3); WHITE BLOOD COUNT 10.18 K/uL (4.8-10.8)
[2017-11-14 13:36] LABS: BLOOD UREA NITROGEN 14 mg/dl (7-18); CALCIUM 9.2 mg/dl (8.5-10.1); CARBON DIOXIDE 30 mmol/L (21-32); CREATININE 0.76 mg/dl (0.60-1.20); GLUCOSE 92 mg/dl (70-99); POTASSIUM 3.9 mmol/L (3.5-5.1); SODIUM 138 mmol/L (136-145)
== END | disposition home or self-care (01) ==
LOC: C.LABPBG 10:40
PROVIDERS: ATTEND Family Medicine
DX: J15.9 Unspecified bacterial pneumonia (principal); E87.1 Hypo-osmolality and hyponatremia

== ENCOUNTER 2017-11-15 13:22 | Emergency (ER) | payer OTHER ==
[~2017-11-15] VITALS: Ht 160 cm; Wt 92.0 kg
[~2017-11-15 13:22] MED LIST changes: -CITA20TA4 PO; -DICL50TA3 PO; -HYDR-5688 PO; -LIDO1PAD2 TD; -MULT-513 PO; -NYSS/ PO; -SIMV40TA2 PO; -VITACAP37 PO
[2017-11-15 13:24] VITALS: Ht 160 cm; Wt 92.0 kg
[2017-11-15] MEDS ORDERED: ALBUT/IPRATROP 3MG/0.5MG NEB 3 ML VIAL INH STA (14:22)
[2017-11-15] MEDS ORDERED: NYSTATIN SUSP 500,000 U/5 ML UDC PO STA (14:28)
[2017-11-15] MEDS ORDERED: SODIUM CHLORIDE 0.9% 500ML 500 ML IV STA (14:28)
--- NOTE | 2017-11-15 14:28 | EMERGENCY ROOM VISIT NOTE ---
History First contact with patient: 14:07 Chief Complaint: RESPIRATORY PROBLEMS Stated Complaint: BACK PAIN Nursing Triage Summary: pt to the ED with c/o right upper back/rib pain that started while she was in the hospital and had a CT scan and told she had pneumonia had pneumonia and was dc home and home health nurse thinks she might have a blood clot in pts lung no cough + SOB History of Present Illness The patient is a 67 year old female who presents to the Emergency Room with complaints of worsening chest pain and shortness of breath over the last several days. The patient was admitted to the hospital on November 08 for right -sided pneumonia. She was discharged home with an albuterol inhaler and Levaquin. She still has 4 days of Levaquin left. She has been taking her inhaler with minimal relief. The pain and breathing is not exertional in nature. She denies any fever or chills. She has had a decreased appetite. Review of Systems 10 system review performed and negative unless noted in HPI or below Past Medical/Surgical History Medical Problems: (1) Acute respiratory failure with hypoxia (2) Hx of bronchitis (3) Pneumonia involving right lung Surgical Problems: (1) Knee joint replacement status Family History Diabetes mellitus Heart disease Social History Smoking Status: Current Every Day Smoker Alcohol Use: none Drug Use: none Marital Status: Housing Status: lives with significant other Occupation Status: unemployed Current/Historical Medications Scheduled Citalopram Hydrobromide (Citalopram Hydrobromide), 20 MG PO DAILY Diclofenac (Voltaren), 50 MG PO BID Levofloxacin (Levaquin), 750 MG PO DAILY Lidocaine (Lidocaine), 1 PATCH TD DAILY Multivitamins/Minerals (Mvi With Minerals), 1 TAB PO DAILY Nystatin (Nystatin Suspension), 5 ML PO TID Simvastatin (Zocor), 40 MG PO QAM Vitamin E (E-400), 400 UNITS PO DAILY Scheduled PRN Albuterol (Ventolin Hfa), 1 PUFF INH Q4 PRN for SOB/Wheezing Hydrocodone/Acetaminophen 5MG/325MG ([place] 5MG/325MG), 1-2 TABLET PO Q4H PRN for Pain Physical Exam Vital Signs Date Time Temp Pulse Resp B/P (MAP) Pulse Ox O2 Delivery O2 Flow Rate FiO2 11/15/17 17:39 36.8 89 18 168/95 94 11/15/17 16:21 22 94 Room Air 11/15/17 16:05 104 18 168/95 94 Room Air 11/15/17 13:24 36.8 101 20 159/109 94 Physical Exam GENERAL: 67-year-old female, in no acute distress, SKIN: The skin was without rashes, erythema, edema, or bruising. HEAD: Normocephalic atraumatic. MOUTH: Mucous membranes moderately dry. White plaque noted to the tongue.. NECK: Supple without nuchal rigidity. No lymphadenopathy.. No JVD. HEART: Regular rate and rhythm without murmurs gallops or rubs. LUNGS: Crackles at the left base. Decreased breath sounds at the right base. No significant wheezing. ABDOMEN: Positive bowel sounds x 4.Soft, nontender, without organomegaly. No guarding or rebound tenderness. MUSCULOSKELETAL: No muscle atrophy, erythema, or edema noted. Strength 5/5 throughout. NEURO: Patient was alert and oriented to person place and time. Normal sensation to touch. No focal neurological deficits. Medical Decision & Procedures ER Provider Diagnostic Interpretation: CXR Patient Name: CAMILO BATISTA Unit Number: [id number] IMPRESSION: 1. Persistent but improved right lower lobe consolidation which suggests pneumonia. 2. Redemonstration of an indeterminate 2 cm irregular density within the right upper lobe. This favors scarring but should be assessed on subsequent exams to ensure stability or resolution. 3. Suspected small right pleural effusion. Electronically signed by: Dominick Hackett M.D. 11/15/2017 3:09 PM Dictated Date/Time: 11/15/2017 3:07 PM The status of this report is Signed. Draft = Not yet reviewed or approved by Radiologist. Signed = Reviewed and approved by Radiologist. <AttendingPhy></AttendingPhy> <FamilyPhy>Janell Perea MD</FamilyPhy> < PrimaryPhy>Janell Perea MD</PrimaryPhy> <UnitNumber>[id number]</UnitNumber > <VisitNumber>[id number]</VisitNumber> <PatientName>CAMILO BATISTA</ PatientName> <DateOfBirth>1950</DateOfBirth> <Location>[facility]</Location> < ServiceDate>11/15/17</ServiceDate> <MNE>ESINDI</MNE> <OrderingPhy>Roma Briscoe PA-C</OrderingPhy> <OrderingPhyMNE>f rep ord dr courtney</OrderingPhyMNE> < DictatingPhyMNE>f rep dict dr courtney</DictatingPhyMNE> <CCListMNE>f rep ct mne</ CCListMNE> <AdmittingPhyMNE>f pt admit dr courtney</AdmittingPhyMNE> <AttendingPhyMNE >f pt attend dr courtney</AttendingPhyMNE> <ConsultingPhyMNE>f pt consult dr courtney</ConsultingPhyMNE> <FamilyPhyMNE>f pt fam dr courtney</FamilyPhyMNE> <OtherPhyMNE>f pt other dr courtney</OtherPhyMNE> < PrimaryPhyMNE>f pt prim care dr courtney</PrimaryPhyMNE> <ReferringPhyMNE>f pt referring dr courtney</ReferringPhyMNE> CTA chest IMPRESSION: 1. No evidence of acute pulmonary embolism 2. Persistent but improving right lower lobe pulmonary consolidation consistent with pneumonia 3. Interval development of a small right pleural effusion 4. Mild mediastinal and hilar lymphadenopathy, possibly reactive 5. Stable indeterminate 6 mm right apical groundglass opacity 6. Stable 15 mm wispy right upper lobe opacity 7. Hepatic steatosis Electronically signed by: Sarmad Louis M.D. 11/15/2017 4:05 PM Dictated Date/Time: 11/15/2017 3:58 PM The status of this report is Signed. Draft = Not yet reviewed or approved by Radiologist. Signed = Reviewed and approved by Radiologist. <AttendingPhy></AttendingPhy> <FamilyPhy>Janell Perea MD</FamilyPhy> < PrimaryPhy>Janell Perea MD</PrimaryPhy> <UnitNumber>[id number]</UnitNumber > <VisitNumber>[id number]</VisitNumber> <PatientName>CAMILO BATISTA</ PatientName> <DateOfBirth>1950</DateOfBirth> <Location>[facility]</Location> < ServiceDate>11/15/17</ServiceDate> <MNE>ESINDI</MNE> <OrderingPhy>Roma Briscoe PA-C</OrderingPhy> <OrderingPhyMNE>f rep ord dr courtney</OrderingPhyMNE> < DictatingPhyMNE>f rep dict dr courtney</DictatingPhyMNE> <CCListMNE>f rep ct mne</ CCListMNE> <AdmittingPhyMNE>f pt admit dr courtney</AdmittingPhyMNE> <AttendingPhyMNE >f pt attend dr courtney</AttendingPhyMNE> <ConsultingPhyMNE>f pt consult dr courtney</ConsultingPhyMNE> <FamilyPhyMNE>f pt fam dr courtney</FamilyPhyMNE> <OtherPhyMNE>f pt other dr courtney</OtherPhyMNE> < PrimaryPhyMNE>f pt prim care dr courtney</PrimaryPhyMNE> <ReferringPhyMNE>f pt referring dr courtney</ReferringPhyMNE> Laboratory Results 11/15/17 14:50 Red Blood Count 4.81, Mean Corpuscular Volume 92.7, Mean Corpuscular Hemoglobin 32.6, Mean Corpuscular Hemoglobin Concent 35.2, Mean Platelet Volume 8.9, Neutrophils (%) (Auto) 77.1, Lymphocytes (%) (Auto) 13.5, Monocytes (%) (Auto) 7.3, Eosinophils (%) (Auto) 1.3, Basophils (%) (Auto) 0.1, Neutrophils # (Auto) 8.71, Lymphocytes # (Auto) 1.53, Monocytes # (Auto) 0.82, Eosinophils # (Auto) 0.15, Basophils # (Auto) 0.01 11/15/17 14:50 Test 11/15/17 14:50 White Blood Count 11.30 K/uL (4.8-10.8) Red Blood Count 4.81 M/uL (4.2-5.4) Hemoglobin 15.7 g/dL (12.0-16.0) Hematocrit 44.6 % (37-47) Mean Corpuscular Volume 92.7 fL (80-100) Mean Corpuscular Hemoglobin 32.6 pg (25-34) Mean Corpuscular Hemoglobin Concent 35.2 g/dl (32-36) Platelet Count 320 K/uL (130-400) Mean Platelet Volume 8.9 fL (7.4-10.4) Neutrophils (%) (Auto) 77.1 % Lymphocytes (%) (Auto) 13.5 % Monocytes (%) (Auto) 7.3 % Eosinophils (%) (Auto) 1.3 % Basophils (%) (Auto) 0.1 % Neutrophils # (Auto) 8.71 K/uL (1.4-6.5) Lymphocytes # (Auto) 1.53 K/uL (1.2-3.4) Monocytes # (Auto) 0.82 K/uL (0.11-0.59) Eosinophils # (Auto) 0.15 K/uL (0-0.5) Basophils # (Auto) 0.01 K/uL (0-0.2) RDW Standard Deviation 45.8 fL (36.4-46.3) RDW Coefficient of Variation 13.5 % (11.5-14.5) Immature Granulocyte % (Auto) 0.7 % Immature Granulocyte # (Auto) 0.08 K/uL (0.00-0.02) Anion Gap 6.0 mmol/L (3-11) Est Creatinine Clear Calc Drug Dose 85.4 ml/min Estimated GFR () 103.9 Estimated GFR (Non- 89.7 BUN/Creatinine Ratio 19.6 (10-20) Calcium Level 9.3 mg/dl (8.5-10.1) Troponin I < 0.015 ng/ml (0-0.045) Medications Administered Medications (Trade) Dose Ordered Sig/Lefty Route Start Time Stop Time Status Last Admin Dose Admin Albuterol/ Ipratropium (Duoneb) 3 ml ONE STAT INH 11/15/17 14:22 11/15/17 14:25 DC 11/15/17 15:03 3 ML Sodium Chloride 500 ml @ 999 mls/hr Q31M STAT IV 11/15/17 14:28 11/15/17 14:58 DC 11/15/17 15:03 999 MLS/HR Nystatin (Mycostatin Susp) 10 ml NOW STAT PO 11/15/17 14:28 11/15/17 14:30 DC 11/15/17 15:39 10 ML ECG Per My Interpretation Indication: chest pain Rate (beats per minute): 84 Rhythm: normal sinus ED Course Patient was seen and examined Vital signs including blood pressure were reviewed medications list was verified with patient Labs were obtained, and a saline lock was established The patient was given a DuoNeb treatment. She was hydrated with 500 mL of normal saline. An EKG was performed and reviewed by myself The case was reviewed with my supervising physician who is in agreement with my plan Upon reevaluation, the patient was resting comfortably. We discussed the results of her workup. She voiced understanding. And oxygen trial was performed. She was saturating at 94% on room air. The case was also discussed with supervising physician who is in agreement with my plan. The patient was reassessed. She was anxious to be discharged home. I reviewed discharge instructions the patient. They voiced understanding and had no further questions. Medical Decision Differential diagnosis: Pneumonia, pulmonary embolus, rib fracture, pneumothorax , cardiac ischemia This patient is a 67-year-old female that presents to the emergency department with complaints of worsening chest pain or difficulty breathing. On exam, the patient had decreased breath sounds at the right base. She also appears slightly dehydrated. Her workup reveals mild leukocytosis. EKG shows normal sinus rhythm with no signs of ischemia or infarction. A troponin is negative. I do not suspect a cardiac cause of her pain. A CT scan of the chest was performed. No PE was noted. She does continue to have pneumonia, but it is improving. The patient was given a DuoNeb in the emergency department. She is comfortable being discharged home, which I think is reasonable. If oxygen trial was performed prior to discharge. She did not develop any dyspnea. She was saturating at 94% on room air. I believe she is stable to be discharged home and continue her course of Levaquin for pneumonia. She was given a short course of narcotics and a lidocaine patch for her pain. She was encouraged to follow up closely with her primary care physician within the next 24-48 hours for a recheck. She is in agreement with this plan. She will return with any new or worsening symptoms This chart was completed in part utilizing wikifol[employer] Voice Recognition software. Attempts were made to minimize the grammatical errors, random word insertions, pronoun errors and incomplete sentences. Any formal questions or concerns about the content, text or information contained within the body of this dictation should be directly addressed to the provider for clarification. Medication Reconcilliation Current Medication List: was personally reviewed by me Blood Pressure Screening Patient's blood pressure: Elevated blood pressure Blood pressure disposition: Referred to PCP Impression Primary Impression: Pneumonia involving right lung Departure Information Dispostion Home / Self-Care Condition FAIR Prescriptions Nystatin (Nystatin Suspension) 1 Ml Susp 5 ML PO TID for 7 Days, #105 ML swish and spit Prov: Roma Briscoe PA-C 11/15/17 Hydrocodone/Acetaminophen 5MG/325MG ([place] 5MG/325MG) Tab 1-2 TABLET PO Q4H Y for Pain, #15 TAB For Initial Treatment Prov: Roma Briscoe PA-C 11/15/17 Lidocaine (LIDOCAINE) 5 % Pad 1 PATCH TD DAILY for Pain, #30 PATCH Prov: Roma Briscoe PA-C 11/15/17 Referrals Janell Perea MD (PCP) Patient Instructions My [facility] Additional Instructions You were evaluated in the emergency department for right-sided chest and back pain. This is likely due to pneumonia, which appears to be improving slowly Please take ibuprofen 400 mg every 6 hours as needed for pain [place] 1-2 tabs every 4 hours for severe pain. Do not drink alcohol or drive while taking this medication. This may be taken with ibuprofen, but avoid Tylenol. Please apply the lidocaine patch to the area of pain daily and remove after 12 hours It also appears that you have thrush. Please do nystatin swish and spit as directed It is very important for you to follow-up with your primary care physician within the next 24-48 hours for recheck Please not hesitate to return to the emergency department with any new, worsening or concerning symptoms; especially, worsening pain, difficulty breathing or fever of 103 greater
[2017-11-15 15:01] LABS: BASO % 0.1 %; BASO ABS # 0.01 K/uL (0-0.2); EOS % 1.3 %; EOS ABS # 0.15 K/uL (0-0.5); HEMATOCRIT 44.6 % (37-47); HEMOGLOBIN 15.7 g/dL (12.0-16.0); IG# 0.08 K/uL (0.00-0.02); LYMPH % 13.5 %; LYMPH ABS # 1.53 K/uL (1.2-3.4); MEAN CELL VOLUME 92.7 fL (80-100); MEAN CORPUSCULAR HEMOGLOBIN 32.6 pg (25-34); MEAN CORPUSCULAR HGB CONC 35.2 g/dl (32-36); MEAN PLATELET VOLUME 8.9 fL (7.4-10.4); MONO % 7.3 %; MONO ABS # 0.82 K/uL (0.11-0.59); NEUT % 77.1 %; NEUT ABS # 8.71 K/uL (1.4-6.5); PLATELET COUNT 320 K/uL (130-400); RED CELL DISTRIBUTION WIDTH CV 13.5 % (11.5-14.5); RED CELL DISTRIBUTION WIDTH SD 45.8 fL (36.4-46.3)
--- NOTE | 2017-11-15 15:11 | DIAGNOSTIC IMAGING REPORT ---
CHEST 2 VIEWS ROUTINE CLINICAL HISTORY: Right-sided pneumonia. Worsening chest pain and shortness of breath. COMPARISON STUDY: Chest CT November 08, 2017. FINDINGS: Lung volumes are normal. There is a small right pleural effusion. There is no evidence for pulmonary edema. A small irregular 2 cm irregular right upper lobe opacity is unchanged. Right basilar airspace opacity persists and has likely improved since exam of November 08, 2017. IMPRESSION: 1. Persistent but improved right lower lobe consolidation which suggests pneumonia. 2. Redemonstration of an indeterminate 2 cm irregular density within the right upper lobe. This favors scarring but should be assessed on subsequent exams to ensure stability or resolution. 3. Suspected small right pleural effusion. Electronically signed by: Dominick Hackett M.D. 11/15/2017 3:09 PM Dictated Date/Time: 11/15/2017 3:07 PM
[2017-11-15 15:17] LABS: BLOOD UREA NITROGEN 13 mg/dl (7-18); CALCIUM 9.3 mg/dl (8.5-10.1); CARBON DIOXIDE 27 mmol/L (21-32); CREATININE 0.67 mg/dl (0.60-1.20); GLUCOSE 90 mg/dl (70-99); SODIUM 137 mmol/L (136-145)
[2017-11-15] MEDS ORDERED: OPTIRAY 320 IV PRN (15:45)
--- NOTE | 2017-11-15 16:06 | DIAGNOSTIC IMAGING REPORT ---
CT ANGIOGRAM OF THE CHEST CLINICAL HISTORY: Right-sided chest pain. Recent pneumonia. COMPARISON STUDY: CT 2017 TECHNIQUE: Following the IV administration of 93 mL of Optiray-320, CT angiogram of the thorax was performed from the thoracic inlet to the lung bases utilizing the pulmonary embolus protocol. Images are reviewed in the axial, sagittal, and coronal planes. IV contrast was administered without complication. MIP imaging was performed. A dose lowering technique was utilized adhering to the principles of ALARA. CT DOSE: 590.95 mGy.cm FINDINGS: There is hepatic steatosis. There is narrowing of the subclavian vein, intentionally secondary to arm position. A subclavian vein stenosis cannot however be excluded. There is contrast within extensive right chest wall collaterals There are mildly enlarged the spinal lymph nodes measuring up to 15 mm in diameter. These are possibly reactive. Right hilar nodes are borderline enlarged. There is no pathologic axillary lymphadenopathy. There was no evidence of thoracic aortic dilatation. There were no pulmonary artery filling defects to indicate acute pulmonary embolism. There is a small right pleural effusion which has developed since the preceding examination. There are persistent but improving right lower lobe airspace opacities, consistent with a pneumonia. Dependent left basilar opacities are likely atelectatic. There is a stable wispy right upper lobe opacity, likely representing scar. There is a 6 mm right apical groundglass opacity which remains unchanged the prior study and is indeterminate. IMPRESSION: 1. No evidence of acute pulmonary embolism 2. Persistent but improving right lower lobe pulmonary consolidation consistent with pneumonia 3. Interval development of a small right pleural effusion 4. Mild mediastinal and hilar lymphadenopathy, possibly reactive 5. Stable indeterminate 6 mm right apical groundglass opacity 6. Stable 15 mm wispy right upper lobe opacity 7. Hepatic steatosis Electronically signed by: Sarmad Louis M.D. 11/15/2017 4:05 PM Dictated Date/Time: 11/15/2017 3:58 PM
[2017-11-15] MEDS ORDERED: HYDR-5688 PO (17:20)
[2017-11-15] MEDS ORDERED: LIDO1PAD2 TD (17:20)
[2017-11-15] MEDS ORDERED: NYSS/ PO (17:20)
[2017-11-15 17:39] VITALS: BP 168/95; PULSE 89; TEMP 36.8; O2SAT 94
[2017-11-15] MEDS ORDERED: MULT-513 PO (19:12)
[2017-11-15] MEDS ORDERED: VITACAP37 PO (19:12)
[2017-11-15] MEDS ORDERED: SIMV40TA2 PO (19:12)
[2017-11-15] MEDS ORDERED: DICL50TA3 PO (19:12)
[2017-11-15] MEDS ORDERED: CITA20TA4 PO (19:12)
--- NOTE | 2017-11-16 02:21 | EMERGENCY ROOM VISIT NOTE ---
ED Visit Note First contact with patient: 14:07 I reviewed the patient's past medical history, medications, and visit nursing notes. I discussed the case with the physician golf player assistant and agree with the findings and plan as documented in the physician assistants note.
== END 2017-11-15 17:40 | disposition home or self-care (01) ==
LOC: C.EDB 13:22
DX: J18.9 Pneumonia, unspecified organism (principal)

== ENCOUNTER → 2017-12-03 | Outpatient (CLI) | payer OTHER ==
[~2017-12-03] MED LIST changes: +CITA20TA4 PO; +DICL50TA3 PO; +HYDR-5688 PO; +LIDO1PAD2 TD; +MULT-513 PO; +NYSS/ PO; +SIMV40TA2 PO; +VITACAP37 PO
--- NOTE | 2017-12-03 13:16 | DIAGNOSTIC IMAGING REPORT ---
(CHEST) THORAX WITHOUT CT DOSE: 697.20 mGy.cm CLINICAL HISTORY: 67 years-old Female with J18.9 Community acquired pneumoniaf/u to assess resolution of CA. Follow-up study in a patient with pneumonia TECHNIQUE: Multiaxial CT images of the chest were performed without contrast. A dose lowering technique was utilized adhering to the principles of ALARA. COMPARISON: CTA of the chest 11/15/2017, 11/08/2017. FINDINGS: Thyroid is homogeneous without dominant nodule. Mildly enlarged precarinal lymph node measures 10 mm, slightly decreased in size from comparison. No additional pathologically enlarged lymph nodes identified. Heart is normal in size without pericardial effusion. Calcification of the aortic annulus. No aortic aneurysm. There is no pneumothorax or pleural effusion. Left lung is generally clear. There is improved aeration of the right lower lobe from comparison with only minimal subsegmental consolidation of the posterior basal segment right lower lobe. Unchanged 1.5 cm groundglass opacity of the apical segment right upper lobe. Central airways are patent. Minimal subpleural cystic changes of the lung apices. Previously described 6 mm groundglass opacity of the right upper lobe is not clearly seen. Hepatic steatosis. No acute process of the imaged upper abdomen. Small sliding-type hiatal hernia. The soft tissues are unremarkable. Multilevel endplate spurring about the spine. Mild convex right curvature of the midthoracic spine. IMPRESSION: 1. Improved aeration of the right lower lobe with only minimal subsegmental consolidation of the posterior basal segment right lower lobe suggesting resolving pneumonia and/or atelectasis with some postinflammatory scarring. There is also resolution of the previously described small right pleural effusion. 2. Unchanged linear 1.5 cm groundglass opacity of the right upper lobe. 3. Decreased mediastinal adenopathy. 4. Hepatic steatosis. 5. Small sliding-type hilar hernia. Electronically signed by: Jese Wolf M.D. 12/03/2017 1:15 PM Dictated Date/Time: 12/03/2017 1:06 PM
== END | disposition home or self-care (01) ==
LOC: C.CTS 12:46
PROVIDERS: ATTEND Family Medicine
DX: J18.9 Pneumonia, unspecified organism (principal); K76.0 Fatty (change of) liver, not elsewhere classified; K40.90 Unilateral inguinal hernia, without obstruction or gangrene, not specified as recurrent

== ENCOUNTER → 2018-04-03 | Outpatient (CLI) | payer OTHER ==
[2018-04-03 16:46] LABS: BASO % 0.2 %; BASO ABS # 0.01 K/uL (0-0.2); EOS % 3.1 %; EOS ABS # 0.15 K/uL (0-0.5); HEMATOCRIT 44.1 % (37-47); HEMOGLOBIN 14.8 g/dL (12.0-16.0); IG# 0.01 K/uL (0.00-0.02); LYMPH % 31.6 %; LYMPH ABS # 1.55 K/uL (1.2-3.4); MEAN CELL VOLUME 92.5 fL (80-100); MEAN CORPUSCULAR HGB CONC 33.6 g/dl (32-36); MEAN PLATELET VOLUME 10.1 fL (7.4-10.4); MONO % 10.2 %; NEUT % 54.7 %; NEUT ABS # 2.69 K/uL (1.4-6.5); PLATELET COUNT 287 K/uL (130-400); RED CELL DISTRIBUTION WIDTH CV 12.9 % (11.5-14.5); RED CELL DISTRIBUTION WIDTH SD 43.6 fL (36.4-46.3); WHITE BLOOD COUNT 4.91 K/uL (4.8-10.8)
[2018-04-03 17:04] LABS: ALBUMIN 4.1 gm/dl (3.4-5.0); ALKALINE PHOSPHATASE 46 U/L (45-117); ALT/SGPT 52 U/L (12-78); AST/SGOT 38 U/L (15-37); BLOOD UREA NITROGEN 22 mg/dl (7-18); CALCIUM 9.3 mg/dl (8.5-10.1); CARBON DIOXIDE 26 mmol/L (21-32); CREATININE 0.82 mg/dl (0.60-1.20); GLUCOSE 84 mg/dl (70-99); SODIUM 137 mmol/L (136-145); TOTAL PROTEIN 7.9 gm/dl (6.4-8.2)
== END | disposition home or self-care (01) ==
LOC: C.LABPBG 11:45
PROVIDERS: ATTEND Family Medicine
DX: R19.7 Diarrhea, unspecified (principal)

== ENCOUNTER → 2018-04-04 | Outpatient (CLI) | payer OTHER | END | disposition home or self-care (01) | LOC: C.LABSPEC 12:41 | PROVIDERS: ATTEND Family Medicine | DX: R19.7 Diarrhea, unspecified (principal) ==

== ENCOUNTER 2019-01-30 06:31 | Inpatient (IN) ==
--- NOTE | 2019-01-09 13:50 | Anesthesiology Consultation ---
Date of Service January 09, 2019 Assessment & Plan (1) Encounter for pre-operative examination: Chart Review Chart Review: Acceptable Risk for Surgery and Patient seen in Pre Admission Testing Teaching & Discussion Pre-Anesthesia Teaching/Discussion Notes: Instructed NPO after midnight before surgery,except medications with 15 cc of water. Medication instructions provided according to the PAT guidelines. History Surgery Operation Date: 01/30/19 13:30 Proposed Procedures p L3-L4, L4-L5 Laminectomy and Fusion - Aris Davis DO Height/Weight Height: 5 ft 3 in Weight: 86.3 kg Allergies Allergy/AdvReac Type Severity Reaction Status Date / Time amoxicillin Allergy Intermediate HIVES Verified 01/07/19 09:57 Penicillins Allergy Intermediate HIVES Verified 01/07/19 09:57 Medications Home Medications Medication Instructions Recorded Confirmed Last Taken citalopram 20 mg PO QAM 07/23/18 01/07/19 12/15/18 09:00 diclofenac sodium 50 mg PO BID 07/23/18 01/07/19 12/15/18 09:00 hydrochlorothiazide 25 mg PO QAM 07/23/18 01/07/19 12/15/18 09:00 lisinopril 10 mg PO QAM 07/23/18 01/07/19 12/15/18 09:00 multivitamin 1 tab PO QAM 07/23/18 01/07/19 12/15/18 09:00 simvastatin 40 mg PO QAM 07/23/18 01/07/19 12/15/18 09:00 hydrocodone-acetaminophen 1 tab PO Q6H PRN #40 tab 08/13/18 01/07/19 11/28/18 ascorbic acid (vitamin C) [Vitamin 500 mg PO QAM 11/29/18 01/07/19 12/15/18 09:00 C] naproxen sodium [Aleve] 220 mg PO BID PRN 11/29/18 01/07/19 11/28/18 oxybutynin chloride [Ditropan XL] 20 mg PO QAM 01/07/19 01/07/19 Unknown Past Medical History Medical History Anxiety Chronic back pain Depression 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 History of pneumonia 11/2018= SYMPTOMS RESOLVED Hyperlipidemia Hypertension Osteoarthritis Urinary incontinence Past Family History Family History Brother Family history of diabetes mellitus Sister Family history of diabetes mellitus Past Surgical History Surgical History H/O foot surgery B/L 2/2 PLANTAR FASCITIS History of adenoidectomy History of arthroscopy LEFT KNEE History of discectomy History of tonsillectomy History of total knee replacement RIGHT Past Anesthesia History No Hx of Anesthesia Complications and No Family Hx of Anesthesia Complications History of PONV No Motion Sickness Screening History of Motion Sickness: No Social History Smoking Status: Current every day smoker tobacco type: cigarettes Smoking cigarettes per day: < 10 CIGARETTES PER DAY; INTERMITTENT USE X 50 YEARS Do You Dip or Chew Tobacco: No Hx Alcohol Use: Yes Alcohol type: beer and wine alcohol intake frequency: holidays/special occasions only Hx Substance Use: No substance use type: does not use Exercise / Class Metabolic Activity III < 4 Walking/Shop/Light housework Review of Systems Patient denies chest pain, shortness of breath, cough, wheezing, palpitations. Physical Exam Vital Signs VITALS BP 113/75 P 80 TEMP 97.7 SP02 95%RA RESP 18 PHYSICAL Full neck and c-spine range of motion. Full TMJ range of motion. TMD 4 finger breaths Mallampati Score 1 Dentition: full dentures upper/lower; edentulous Lungs: clear throughout to auscultation Cardiac: regular rate and rhythm, no murmurs noted Spine: normal Carotid arteries: negative bruit Extremities: no edema Testing Electrocardiogram Date: 11/29/18 NSR at 79bpm. No significant change compared to 11/2017 per cardio. *Poor data quality* Chest X-Ray Date: 01/09/19 Findings: + NAD No acute process. The faint linear density within the right upper lobe persists. Follow-up nonemergent chest CT is recommended to evaluate for 1 year stability from the previous chest CT. Report sent to PCP for their reference* Laboratory Results 01/09/19 14:02 Blood Type A Negative 01/09/19 14:02 Antibody Screen NEGATIVE 01/09/19 14:02 PT 9.9 Seconds (9.0-12.0) 01/09/19 14:02 INR 1.0 (0.9-1.1) 01/09/19 14:02 APTT 24.8 Seconds (21.0-31.0) 01/09/19 14:02 12/15/18 SODIUM 139 POTASSIUM 3.3 CHLORIDE 100 CO2 29 BUN 14 CREATININE 0.87 GLUCOSE 109
--- NOTE | 2019-01-09 14:24 | XRay Report ---
XR chest Pre-admission PA/Lat HISTORY: Preop. COMPARISON: Chest 07/29/2018. Chest CT 11/23/2017. FINDINGS: No significant change in the faint linear density within the right upper lobe. No pneumothorax. No pl eural effusions. No new focal lung consolidations. The heart is normal in size. No fractures within t he visualized osseous structures. IMPRESSION: 1. No change compared to the prior study. No acute process. 2. The faint linear density within the right upper lobe persists. Follow-up nonemergent chest CT is r ecommended to evaluate for 1 year stability from the previous chest CT. Electronically signed by: Curtis Telles M.D. 01/09/2019 2:23 PM
[2019-01-09 15:07] LABS: Basophils # (auto) 0.02 K/uL (0-0.2); Basophils % (auto) 0.4 %; Eosinophils # (auto) 0.15 K/uL (0-0.5); Eosinophils % (auto) 2.7 %; Hematocrit (blood only) 45.6 % (37-47); Lymphocytes # (auto) 1.53 K/uL (1.2-3.4); Lymphocytes % (auto) 27.1 %; Mean Corpuscular Hgb Conc 35.1 g/dL (32-36); Mean Corpuscular Volume 92.3 fL (80-100); Mean Platelet Volume 9.1 fL (7.4-10.4); Monocytes % (auto) 8.9 %; Neutrophils # (auto) 3.44 K/uL (1.4-6.5); Neutrophils % (auto) 60.9 %; Platelet Count 309 K/uL (130-400); RDW Coefficient of Variation 13.3 % (11.5-14.5); RDW Standard Deviation 44.9 fL (36.4-46.3); Red Blood Count 4.94 M/uL (4.2-5.4); White Blood Count 5.64 K/uL (4.8-10.8)
[2019-01-09 15:18] LABS: Partial Thromboplastin Ratio 0.9; Partial Thromboplastin Time 24.8 Seconds (21.0-31.0); Prothrombin Time 9.9 Seconds (9.0-12.0)
--- NOTE | 2019-01-29 17:00 | History and Physical Report ---
DATE OF ADMISSION: 01/30/2019 CHIEF COMPLAINT: Back pain, lower extremity difficulty, paresthesias, bent over posturing, difficulty getting to an upright position. She has tried conservative care. She has tried bracing, medications, injections and has failed to improve. She has a progressive deficit, progressive pain. PAST MEDICAL HISTORY: Positive for hypertension, high cholesterol. Negative for heart disease, diabetes, or carcinoma. PAST SURGICAL HISTORY: Right knee replacement. ALLERGIES: AMOXICILLIN. SOCIAL HISTORY: She is . No alcohol or tobacco. Moderately active. REVIEW OF SYSTEMS: Twelve-system review is negative for fevers, sweats, or chills. Ear, nose and throat negative. She has some change in bowel and bladder habits, frequent urination. She denies any memory loss, confusion, skin rashes or lesions. She admits to joint pain, stiffness and back pain. MEDICATIONS: Negative. OBJECTIVE: GENERAL: She is 5 feet 3 inches, 198 pounds. In distress. VITAL SIGNS: Blood pressure 130/80, pulse 80, respirations 16, temperature 97.4. CARDIAC: Normal S1, S2, no S3. LUNGS: Clear to auscultation. No rales, rhonchi or wheezing. ABDOMEN: Soft, nontender, bowel sounds present in all quadrants. NEUROLOGIC: She has deficits of quadriceps strength bilaterally. Decreased range of motion. She has loss of sensation, significant gait abnormality. She has adequate pulses to the extremities. 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 PLAN: Includes a laminectomy and fusion L3-L5 lumbar spine.
[~2019-01-30 06:31] MED LIST changes: +ACETAMINOPHEN 1000 MG/100 ML IV IV SCH; +CEFAZOLIN 2000MG 2,000 MG/15 ML SYR IV SCH; -CITA20TA4 PO; -DICL50TA3 PO; -HYDR-5688 PO; -LEVO1TAB35 PO; -LIDO1PAD2 TD; +LR 15ML/HR IV SCH; -MULT-513 PO; -NYSS/ PO; -PRVHFAIN INH; -SIMV40TA2 PO; +SODIUM CHLORIDE 0.9% 1,000 ML IV SCH; -VITACAP37 PO
[2019-01-30] MEDS ORDERED: BACITRACIN INJ 50,000 UNIT VIAL ONE (06:57)
[2019-01-30] MEDS ORDERED: VANCOMYCIN HCL 1000MG/20ML VIAL ONE (06:57)
[2019-01-30] MEDS ORDERED: THROMBIN FOR SOLN 20000 UNIT KIT ONE (06:57)
[2019-01-30] MEDS ORDERED: GELATIN SPONGE SZ 100 ONE ×2 (06:57→10:35)
[2019-01-30] MEDS ORDERED: BUPIVACAINE/EPINEPHRINE 0.5% MPF 1:200,000 30 ML VIAL ONE (06:58)
[2019-01-30] MEDS ORDERED: ATROPINE SULFATE 0.1 MG/ML 10ML SYR IV PRN ×2 (07:29→07:35)
[2019-01-30] MEDS ORDERED: ePHEDrine sulfate 50 MG/ML AMP IV PRN ×2 (07:29→07:35)
[2019-01-30] MEDS ORDERED: ONDANSETRON INJ 2 MG/ML 2 ML VIAL ONE (07:40)
[2019-01-30] MEDS ORDERED: LIDOCAINE HCL 2% 2 ML VIAL/AMP(20MG/ML) INFIL ONE (07:40)
[2019-01-30] MEDS ORDERED: DEXAMETHASONE SOD INJ 4 MG/ML VIAL ONE (07:40)
[2019-01-30] MEDS ORDERED: ROCURONIUM BROMIDE 10 MG/ML 5 ML VIAL ONE ×2 (07:40→09:49)
[2019-01-30] MEDS ORDERED: MIDAZOLAM HCL 1 MG/ML 2ML VIAL ONE (07:40)
[2019-01-30] MEDS ORDERED: PROPOFOL IV EMULSION 10 MG/ML 20 ML VIAL IV ONE (07:40)
[2019-01-30] MEDS ORDERED: fentaNYL citrate 100 MCG/2 ML VIAL ONE (07:40)
--- NOTE | 2019-01-30 08:33 | History & Physical Bridge Note ---
Date of Service January 30, 2019 History & Physical Bridge Note I have examined the patient, reviewed the History & Physical and in the interval since the performance of the History & Physical I have noted the following changes of clinical significance: no changes noted
[2019-01-30] MEDS ORDERED: HYDROmorphone INJ 2 MG/ML SYR/VIAL ONE (09:11)
[2019-01-30] MEDS ORDERED: FLOSEAL HEMOSTATIC MATRIX 10ML TOP ONE (10:03)
[2019-01-30] MEDS ORDERED: ePHEDrine sulfate 50 MG/ML SYR ONE (11:19)
[2019-01-30] MEDS ORDERED: NEOSTIGMINE METHYLSULFATE 5 MG/5 ML SYR ONE (11:19)
[2019-01-30] MEDS ORDERED: GLYCOPYRROLATE 0.2 MG/ML VIAL ONE (11:19)
--- NOTE | 2019-01-30 11:23 | Fluoroscopy Report ---
FL spine 1V any level CLINICAL HISTORY: 68 years-old Female presenting with L3-L5 LAMI AND FUSION. TECHNIQUE: 1 fluoroscopic image(s) recorded as part of an intraoperative procedure. COMPARISON: CT from 12/19/2018. FINDINGS/IMPRESSION: Postsurgical changes of posterior bilateral transpedicular screw and kushal fixation of L3 L5 new from p rior exam. Please see surgical report for further details. Fluoroscopy dosage (mGy): 3.24. Fluoroscopy time: 4.9 seconds. Number or time of high level fluoroscopy (HLF), digital spot, or digital subtraction images: 0. Electronically signed by: Noah Townsend M.D. 01/30/2019 11:22 AM
--- NOTE | 2019-01-30 11:53 | Post Operative Brief Note ---
Immediate Post Op Note v1 Date of Surgery January 30, 2019 Pre & Post Diagnosis Operation Date: 01/30/19 08:15 Pre-Op Diagnosis: LUMBAR SPINAL STENOSIS Post-Op Diagnosis: LUMBAR SPINAL STENOSIS Procedure Operation Date: 01/30/19 08:15 Actual Procedures p L3-L4, L4-L5 Laminectomy and Fusion , Repair of Dural Tear(Not Applicable) - Aris Davis DO Surgeon Aris Davis DO [place] Supervisor victor manuel Estimated Blood Loss 250 Findings Consistent with Post-Op Diagnosis Drains Fregoso Catheter and Hemovac Drain Anesthesia Type General Disposition Accompanied Patient To Recovery: Yes Overlapping Procedure I was immediately available: during the entire case.
[2019-01-30] MEDS: HYDROmorphone INJ 1 MG/ML SYRINGE IV PRN ×4 (12:15→12:35)
[2019-01-30] MEDS ORDERED: HYDROmorphone INJ 0.5 MG/0.5 ML SYR IV PRN (13:40)
[2019-01-30] MEDS ORDERED: SOD PHOSPHATE/SOD BIPHOSPHATE ENEMA 132 ML BTL PR PRN (13:40)
[2019-01-30] MEDS ORDERED: MAGNESIUM HYDROXIDE SUSP 30 ML UDC PO PRN (13:40)
[2019-01-30] MEDS ORDERED: BISACODYL 10 MG SUPP PR PRN (13:40)
--- NOTE | 2019-01-30 13:51 | Operative Report ---
DATE OF OPERATION: 01/30/2019 PREOPERATIVE DIAGNOSES: Instability lumbar spine, L3-4 and L4-5 lumbar spine. Prior decompression of the lumbar spine. Severe spinal stenosis. POSTOPERATIVE DIAGNOSES: Instability lumbar spine, L3-4 and L4-5 lumbar spine. Prior decompression of the lumbar spine. Severe spinal stenosis. PROCEDURE: Included: 1. Lumbar laminectomy L3-4, L4-5, foraminotomy, partial facetectomy. 2. Instrumentation L3, 4, and 5, a 3-level instrumentation. 3. A fusion 3, 4, and 5 was a posterolateral fusion, no interbody. 4. Repair of the dura. I am listing this as a procedure code. The dura was essentially nonexistent. It was more scar tissue in almost areas where the dura was even absent. SURGEON: Aris Davis DO CHEMICAL BLENDER: Guanakito Epperson PA-C. COMPLICATIONS: Zero. BLOOD LOSS: 250. DESCRIPTION OF PROCEDURE: The patient was taken to the operating room, a general intubated anesthetic provided to the patient, placed prone, prepped and draped sterile. Prior to the procedure, a formal timeout was obtained. Prior to taking the patient back to the operating room, we carefully marked the patient. After skin incision and a fascial incision, we came down on the lamina. There was a significant amount of bone overgrowth on the dura, more than likely an old onlay type bone fusion. We worked through this lifting up some of the bone graft. There really was no space for the dura. There was almost an absence of the dura, almost like a scar tissue film-like substance that previously was dura. This may have been an old tear that was patched. We safely got the nerve roots decompressed to the best of my ability. I felt I was endangering the patient to be more aggressive, so we stopped after careful moderate decompression. We safely instrumented the spine and getting pedicle screws 3, 4, and 5 bilaterally. I was pleased with the fit and the location, verified both anatomically and on C-arm. We irrigated thoroughly. We did close the scar tissue/dura on the left hand side with some 6-0 Nurolon suture. It was, I felt, watertight. Prior to closure, we patched this with DuraSeal along with Gelfoam along with more DuraSeal. I felt it was a fairly watertight good closure. We bone grafted out of the transverse processes with vancomycin impregnated bone. The bone used was a combination of allograft and a bone graft substitute, titled a demineralized bone matrix. This was mixed together with vancomycin powder, placed over the transverse process from 3-4-5 bilaterally. We locked down the construct with 16 mm length rods. We then began our closure over drain over vancomycin powder with 1 Vicryl suture 2-0 in a watertight fashion. I reinforced the interrupted 1 Vicryl with a continuous #1 Vicryl suture. The skin was closed with 3-0 nylon. Sterile dressings applied. The drain activated. The patient returned to PACU improved, stable. IMPLANTS USED: ULTRA Testing. ESTIMATED BLOOD LOSS: 250 mL. Sponge and needle count correct at the close of the procedure. I attest to the content of the Intraoperative Record and any orders documented therein. Any exception s are noted below.
[2019-01-30] MEDS ORDERED: ACETAMINOPHEN 1,000 MG/100 ML VIAL IV PRN (15:00)
--- NOTE | 2019-01-30 15:40 | Anesthesiology Progress Note ---
Date of Service January 30, 2019 Anesthesia Post Procedure Vital Signs Vital Signs: Temp Pulse Pulse Pulse Pulse Resp BP 01/30/19 15:27 36.4 C L 96 H 16 124/81 01/30/19 14:25 93 H 18 108/78 01/30/19 13:56 92 H 17 119/78 01/30/19 13:25 36.8 C 96 H 12 106/71 01/30/19 13:10 36.5 C 99 H 16 106/82 01/30/19 13:00 36.5 C 99 H 15 109/75 01/30/19 12:50 99 H 14 122/72 01/30/19 12:40 96 H 14 116/70 01/30/19 12:30 97 H 14 105/71 01/30/19 12:20 93 H 14 91/67 L 01/30/19 12:10 95 H 14 132/80 01/30/19 12:01 36.9 C 89 14 120/75 01/30/19 06:59 36.6 C 88 20 135/88 Pulse Ox 01/30/19 15:27 96 01/30/19 14:25 97 01/30/19 13:56 98 01/30/19 13:25 98 01/30/19 13:10 97 01/30/19 13:00 97 01/30/19 12:50 96 01/30/19 12:40 96 01/30/19 12:30 96 01/30/19 12:20 98 01/30/19 12:10 99 01/30/19 12:01 95 01/30/19 06:59 97 Pain Intensity Lower Back: Pain Intensity: 4 Transfer of Care Handoff Completed per policy Notes Mental Status: alert / awake / arousable Patient Amnestic to Procedure: Yes Nausea / Vomiting: adequately controlled Pain: adequately controlled Airway Patency, RR, SpO2: stable & adequate BP & HR: stable & adequate Hydration State: stable & adequate Anesthetic Complications: no major complications apparent and Pt Satisfied with anesthetic care
[2019-01-30] MEDS: CLINDAMYCIN 600 MG in DEXTROSE 5% 50 ML IV SCH ×2 (16:27→22:08)
[2019-01-30] MEDS: SODIUM CHLORIDE 0.9% 1000ML 1,000 ML IV SCH (16:28)
[2019-01-30] MEDS: OXYCODONE HCL IR 5 MG TAB (IMMEDIATE RELEASE) PO PRN ×2 (16:33→21:23)
[2019-01-30] MEDS: dexAMETHasone 6 MG in SYRINGE 0 ML IV SCH ×2 (16:38→22:10)
[2019-01-30] MEDS: DOCUSATE SODIUM/SENNA 50/8.6MG TAB PO SCH (20:58)
[2019-01-31] MEDS: SODIUM CHLORIDE 0.9% 1000ML 1,000 ML IV SCH (05:35)
[2019-01-31] MEDS: dexAMETHasone 6 MG in SYRINGE 0 ML IV SCH (06:48)
[2019-01-31] MEDS: OXYCODONE HCL IR 5 MG TAB (IMMEDIATE RELEASE) PO PRN ×3 (06:48→19:11)
--- NOTE | 2019-01-31 08:16 | Anesthesiology Progress Note ---
Date of Service January 31, 2019 Anesthesia Post Procedure Vital Signs Vital Signs: Temp Pulse Pulse Pulse Resp BP BP 01/31/19 07:37 36.6 C 80 20 104/64 01/31/19 03:11 36.8 C 83 16 118/73 01/30/19 22:53 36.7 C 81 16 122/74 01/30/19 21:16 37.0 C 85 18 125/77 01/30/19 16:25 36.6 C 83 14 118/78 01/30/19 15:27 36.4 C L 96 H 16 124/81 01/30/19 14:25 93 H 18 108/78 01/30/19 13:56 92 H 17 119/78 01/30/19 13:25 36.8 C 96 H 12 106/71 01/30/19 13:10 36.5 C 99 H 16 106/82 01/30/19 13:00 36.5 C 99 H 15 109/75 01/30/19 12:50 99 H 14 122/72 01/30/19 12:40 96 H 14 116/70 01/30/19 12:30 97 H 14 105/71 01/30/19 12:20 93 H 14 91/67 L 01/30/19 12:10 95 H 14 132/80 01/30/19 12:01 36.9 C 89 14 120/75 Pulse Ox 01/31/19 07:37 92 01/31/19 03:11 94 01/30/19 22:53 93 01/30/19 21:16 93 01/30/19 16:25 96 01/30/19 15:27 96 01/30/19 14:25 97 01/30/19 13:56 98 01/30/19 13:25 98 01/30/19 13:10 97 01/30/19 13:00 97 01/30/19 12:50 96 01/30/19 12:40 96 01/30/19 12:30 96 01/30/19 12:20 98 01/30/19 12:10 99 01/30/19 12:01 95 Pain Intensity Lower Back: Pain Intensity: 5 Notes Mental Status: alert / awake / arousable Patient Amnestic to Procedure: Yes Nausea / Vomiting: adequately controlled Pain: adequately controlled Airway Patency, RR, SpO2: stable & adequate BP & HR: stable & adequate Hydration State: stable & adequate Anesthetic Complications: no major complications apparent and Pt Satisfied with anesthetic care
[2019-01-31] MEDS: hydroCHLOROthiazide 25 MG TAB PO SCH (08:47)
[2019-01-31] MEDS: OXYBUTYNIN CHLORIDE XL 5 MG TABCR PO SCH (08:47)
[2019-01-31] MEDS: LISINOPRIL 10 MG TAB PO SCH (08:47)
[2019-01-31] MEDS: SIMVASTATIN 40 MG TAB PO SCH (08:47)
[2019-01-31] MEDS: CITALOPRAM 20 MG TAB PO SCH (08:48)
[2019-01-31] MEDS ORDERED: SIMVASTATIN 40 MG TAB PO SCH (09:00)
--- NOTE | 2019-01-31 09:17 | Progress Note ---
DATE: 01/31/2019 SUBJECTIVE: She is alert, oriented, no spinal headache, here this morning. OBJECTIVE: Moves all extremities. No nerve deficit. Pain improved. ASSESSMENT: Status post laminectomy, decompression, repair of dura of the lumbar spine. PLAN: We will slowly get her out of bed to chair here today, short walks in the room, bathroom permitted. Hopefully, we will get her ambulate more tomorrow, will go very slow.
[2019-01-31] MEDS: DOCUSATE SODIUM/SENNA 50/8.6MG TAB PO SCH (21:20)
[2019-01-31] MEDS: LACTATED RINGER'S 1,000 ML IV SCH ×3 (22:39→23:08)
[2019-02-01] MEDS: OXYCODONE HCL IR 5 MG TAB (IMMEDIATE RELEASE) PO PRN ×2 (02:20→07:28)
[2019-02-01] MEDS ORDERED: BUTALBITAL/ASPIRIN/CAFFEINE 1 TAB TAB PO PRN (08:55)
[2019-02-01] MEDS: ONDANSETRON INJ 2 MG/ML 2 ML VIAL IV PRN (08:59)
--- NOTE | 2019-02-01 09:16 | Progress Note ---
DATE: 02/01/2019 SUBJECTIVE: The patient is struggling this morning. She is having difficult time with pain, difficult time with apparent spinal headache. She is alert, oriented. She also had some confusion on the medication. She has no fevers, sweats or chills. OBJECTIVE: She is afebrile, pulse regular at 70 beats per minute, blood pressure is stable. I took down her dressing. It is clean, dry. There is no apparent spinal fluid leakage at this point in time. IMPRESSION: 1. Post-spinal stenosis surgery, reconstruction and revision strategies. 2. Spinal fluid headache. 3. Chronic obstructive pulmonary disease. PLAN: We are going to rest her today. I have restarted IV fluids, bed rest, added Fiorinal for headaches, pulled her off the Dilaudid and will hold off on physical therapy. Dressing is changed. We will keep in a Fregoso catheter and continue IV fluids.
[2019-02-01] MEDS: TRAMADOL HCL 50 MG TABLET PO PRN ×3 (11:36→21:13)
[2019-02-01] MEDS: LISINOPRIL 10 MG TAB PO SCH (11:37)
[2019-02-01] MEDS: hydroCHLOROthiazide 25 MG TAB PO SCH (11:37)
[2019-02-01] MEDS: SIMVASTATIN 40 MG TAB PO SCH (11:38)
[2019-02-01] MEDS: CITALOPRAM 20 MG TAB PO SCH (11:38)
[2019-02-01] MEDS: OXYBUTYNIN CHLORIDE XL 5 MG TABCR PO SCH (11:38)
[2019-02-01] MEDS: LACTATED RINGER'S 1,000 ML IV SCH ×2 (11:43→23:31)
[2019-02-01] MEDS: DOCUSATE SODIUM/SENNA 50/8.6MG TAB PO SCH (21:13)
[2019-02-02] MEDS: TRAMADOL HCL 50 MG TABLET PO PRN ×4 (02:15→20:37)
[2019-02-02] MEDS: OXYBUTYNIN CHLORIDE XL 5 MG TABCR PO SCH (08:58)
[2019-02-02] MEDS: SIMVASTATIN 40 MG TAB PO SCH (08:58)
[2019-02-02] MEDS: CITALOPRAM 20 MG TAB PO SCH (08:58)
[2019-02-02] MEDS: hydroCHLOROthiazide 25 MG TAB PO SCH (08:59)
[2019-02-02] MEDS: LISINOPRIL 10 MG TAB PO SCH (08:59)
[2019-02-02] MEDS: LACTATED RINGER'S 1,000 ML IV SCH ×2 (12:11→23:03)
[2019-02-02] MEDS: DOCUSATE SODIUM/SENNA 50/8.6MG TAB PO SCH (20:37)
[2019-02-03] MEDS: ONDANSETRON INJ 2 MG/ML 2 ML VIAL IV PRN ×2 (01:58→07:00)
--- NOTE | 2019-02-03 08:17 | Progress Note ---
DATE: 02/02/2019 SUBJECTIVE: Estefania was slightly improved on the morning of . Her headaches seemed to resolve. Her pain, her disorientation improved. OBJECTIVE: Her vital signs remained stable, afebrile. Wound was inspected. It was clean. ASSESSMENT: Status post laminectomy, fusion, repair of dura, narcotic use, spinal headache, other comorbidities. PLAN: Includes we will keep her at bed rest today the . Hopefully, get her out of bed to chair on the and hopefully get her home.
[2019-02-03] MEDS: SIMVASTATIN 40 MG TAB PO SCH (08:40)
[2019-02-03] MEDS: hydroCHLOROthiazide 25 MG TAB PO SCH (08:40)
[2019-02-03] MEDS: CITALOPRAM 20 MG TAB PO SCH (08:40)
[2019-02-03] MEDS: OXYBUTYNIN CHLORIDE XL 5 MG TABCR PO SCH (08:40)
[2019-02-03] MEDS: LISINOPRIL 10 MG TAB PO SCH (08:40)
[2019-02-03] MEDS: TRAMADOL HCL 50 MG TABLET PO PRN ×2 (08:43→15:04)
[2019-02-03] MEDS: LACTATED RINGER'S 1,000 ML IV SCH (11:33)
--- NOTE | 2019-02-04 01:24 | Discharge Summary ---
Estefania was discharged home today, 02/03, in improved stable condition. She had a very significant surgery, revision laminectomy, foraminotomy, fusion L3-L4, L4-L5. I repaired the dura at the time of the surgery. I saved dura, but it was scar tissue, thinned out and really no visible dura, dura is an almost absent of any type of structure. She had an uneventful first day and eventful second and third days. She was confused. She had signs of photophobia. She has signs of spinal headache. She absolutely need to be stayed in the hospital. I kept with IV hydration and rest it her for approximately 36 hours. On the , she was improved, stable, out of bed to chair, ambulatory, alert, oriented, no confusion. Wound pristine and discharged home in improved stable condition. Prescription for Ultram on the chart. In the future, we will hold off any narcotics. She has a followup with us in approximately 12 days in the office. She has a back brace for support. Instructions given here in the hospital and from the office. ALBERT
--- NOTE | 2019-02-06 09:48 | Coding Query ---
CODING QUERY To promote full compliance with coding requirements relating to patient care, provider participation is requested in all cases of tin flopper uncertainty. Please assist us with the question(s) below: Coding Question(s): 1. The Operative Note has "Repair of Dural Tear" listed under actual procedures and the Operative Report documents "Repair of the Dura". Please clarify below. ( ) Dural Tear was present from previous surgery ( ) Dural Tear occurred during surgery during this admission ( ) There was No Dural Tear 2. The Progress Note on 02/01 documents Spinal Fluid Headache. Please clarify below, in your clinical opinion. ( ) Spinal Fluid Headache is Cerebral Fluid Leak from spinal puncture ( ) Spinal Fluid Headache is Spinal Fluid Loss (from puncture) ( ) Spinal Fluid Headache is other: Please Specify Physician's Response(s): Thank you Genny Adan Principal Diagnosis: "�that condition established after study, to be chiefly responsible for occasioning the admission of the patient to the hospital for care." Co-Existing Principal Diagnosis: "�when two or more diagnoses equally meet the criteria for principal diagnosis as determined by the circumstances of admission, diagnostic work up, and/or therapy provided, and the Alphabetic Index, Tabular List, or another coding guideline does not provide sequencing direction, any one of the diagnoses may be sequenced first." "When the physician has documented what appears to be a current diagnosis in the body of the record, but has not included the diagnosis in the final diagnostic statement, the physician should be asked whether the diagnosis should be added." ([facility] 2 QTR90. p3-4) ALBERT
--- NOTE | 2019-02-08 08:35 | Operative Report ---
DATE OF OPERATION: 01/30/2019 CODING QUERY I wrote in the operative report repair of dura. In my opinion, with the decompression laminectomy taking off the lamina from prior surgery there was either a tear in the dura from prior surgery or actually absence of the dura with the laminectomy, there were parts of the anatomy that was tissue paper thin and truly was not dura mater or structural integrity. So this actually had to be whatever remnant of scar tissue, I will call it, had to be repaired, patched and taken care of. There was no true tissue of the dura in my opinion. I think the spinal fluid headache that she had postoperatively is resolved from the CSF leak from the procedure. Hopefully, that helps answer your question. I attest to the content of the Intraoperative Record and any orders documented therein. Any exception s are noted below.
== END 2019-02-03 15:00 | disposition home or self-care (01) ==
LOC: ASU 06:31 → 3E 12:05

== ENCOUNTER 2025-03-30 16:30 | Observation (INO) ==
--- NOTE | 2025-03-30 17:00 | Emergency Department Note ---
Impression & Plan Syncope ED Provider Note HISTORY OF PRESENT ILLNESS: Patient is a 74-year-old female presenting with recurrent syncopal episodes. Patient reports that she had taken her sister to [facility] for an outpatient surgery earlier today. She reports that around 9:45 AM she "fell to the ground." Patient reports did not have any chest pain, shortness of breath or lightheadedness prior to fall. She denies getting tripped. EMS reports that she was witnessed to just pass out. Patient denies striking her head. She is not on any anticoagulation or antiplatelet therapy. She was complaining of left shoulder pain after her syncopal episode. Provider at [facility] reportedly was monitoring the patient on telemetry and ordered an x-ray of the left shoulder. Patient was being set up to be discharged, she was feeling well after being monitored at [facility]. However, when she got up to get around to be discharged, she had another syncopal episode. Again denies any lightheadedness, chest pain or presyncopal symptoms. She was witnessed to pass out by staff. She denies any history of cardiac stents. Denies any DVT or PE history. She is not on any anticoagulation or antiplatelet therapy. Her only complaint currently is pain in her left shoulder. Denies any headache or change in vision, numbness or tingling or weakness in her extremities. ROS: as above PHYSICAL EXAM: Constitutional: Patient appears in no acute distress. HENT: Head: Normocephalic and atraumatic. Eyes: EOMI, PERRL Mouth/Throat: Mucous membranes moist. Neck: Trachea midline. Neck supple. No midline cervical spine tenderness palpation. Cardiovascular: RRR, No murmurs, rubs or gallops. Intact distal pulses. Pulmonary/Chest: No respiratory distress. Breath sounds clear and equal bilaterally. No wheezes or rales. Abdominal: Abdomen soft, no tenderness, rebound or guarding. Musculoskeletal: No edema, tenderness or deformity noted. Skin: Warm and dry. No rash, erythema, pallor or cyanosis Psychiatric: Appropriate mood and affect for situation. Neurological: Alert and keenly responsive. CN II-XII grossly intact, moving all extremities equally and fully. MDM: - Vitals signs showed hypertension - History obtained via patient. History as above. - Chronic conditions affecting care: HTN; HLD; depression; hx of DVT - Differential diagnoses include, but are not limited to: Intracranial hemorrhage; CVA; ACS; dysrhythmia; electrolyte abnormality; PE; pneumonia - Order placed for continuous cardiac monitoring. At this time, monitor showed rate of 90 bpm with normal sinus rhythm, per my interpretation. - External medical records reviewed. Primary care visit note dated 01/15/2025 was reviewed. Patient was seen for a 2-month recheck for her high blood pressure, high cholesterol and hypercalcemia. - EKG image interpreted by myself showed normal sinus rhythm. Rate 71 bpm. QT 400. No acute ischemic changes. - Laboratory workup interpreted by myself showed normal WBC; normal PT/INR stable electrolytes; normal troponin; normal TSH; nomral lipase - D-dimer was ordered and elevated so CT PE obtained - CT PE no PE. Noted to have cardiomegaly. - CT head wo contrast negative for acute pathology - Discussion was had with family preservation caseworker about patient's case and need for admission - Hospitalist consulted for admission - [facility] ASSESSMENT AND PLAN: Diagnosis: syncope Plan: admit Past Med/Surg History Problem List (Updated 03/31/25 @ 00:03 by Kely Guido MD) Syncope (Acute) Leg edema, left Syncope Status post left knee replacement 04/25/22 Osteoarthritis of knee Carpal tunnel syndrome, left CMC arthritis Hyperglycemia Cigarette smoker Essential tremor Urinary incontinence Status post left hip replacement Radicular pain of left lower extremity Lumbar disc herniation Insomnia Hyponatremia Hypertension Hyperlipidemia Depression Dependent edema Anxiety Acid reflux Medical History (Updated 03/31/25 @ 00:03 by Kely Guido MD) History of DVT (deep vein thrombosis) Fusion of spine LOWER BACK Temporomandibular joint disorder CLICKS-HAS NEVER LOCKED Tremor SLIGHT QUIVER OF LIP-F/U DR GIBSON History of pneumonia 2017?-SYMPTOMS RESOLVED Foot drop LEFT 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 STENOSIS Osteoarthritis Chronic back pain Urinary incontinence OVERACTIVE Depression Anxiety Hyperlipidemia Hypertension Surgical History Hx of hand surgery History of lumbar laminectomy (~2019) Lumbar laminectomy, foraminotomy, partial facetectomy, posterolateral fusion, dura repair Nausea and vomiting after administration of anesthetic agent History of discectomy History of arthroscopy LEFT KNEE H/O foot surgery B/L 2/2 PLANTAR FASCITIS History of total knee replacement RIGHT History of tonsillectomy History of adenoidectomy Family History Mother , age 58 Depression Alzheimer disease, Onset Age: 54 Anxiety Sister Anxiety Diabetes Depression Stroke History of high blood pressure Father , age 83 Alcohol abuse COPD (chronic obstructive pulmonary disease) Brother Heart disease Diabetes Denies family history of Ovarian cancer Prostate cancer Myocardial infarction Breast cancer Colorectal cancer Social History Smoking Status: Former smoker Tobacco Type: Cigarettes Age Started Using Tobacco: 16; Age Quit Using Tobacco: 74; packs per day: 0.5; Cigarettes Per Day: 0.5ppd at the most; Second Hand Exposure: No; Do You Dip or Chew Tobacco: No; Hx Alcohol Use: Yes Alcohol type: beer and wine Alcohol type Comment: rarely Alcohol Intake Frequency: Monthly or Less Hx Substance Use: No Preferred Language: Wolof Communication Ability: Effective Visual Impairment: Limited Hearing Ability: Normal Green Building Engineer Required: No Beliefs That Will Affect Care: None marital status: Legally Current Living Situation: Alone current occupational status: retired 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 How many Children do You have: 0 Feels Safe at Home: Yes Childhood Exposure to Second-Hand Smoke: Yes Diet: regular caffeine: Yes during the past year weight has: remained stable Dental Care, Regularly: No Physical Activity Frequency: Daily Physical Activity Frequency Comment: walking daily, 1 hour Seatbelt Use: always Sunscreen Use: No Do you think of yourself as: straight/heterosexual Assistive Devices: Denture - Upper, Denture - Lower, Glasses and Hearing Aid - Bilateral Allergies Allergies Allergy/AdvReac Type Severity Reaction Status Date / Time amoxicillin Allergy Intermediate HIVES Verified 03/30/25 22:47 Penicillins Allergy Intermediate HIVES Verified 03/30/25 22:47 sulfamethoxazole AdvReac Intermediate Dizziness, Verified 03/30/25 22:47 lightheadedness, falls hydromorphone [From Dilaudid] AdvReac Hallucinati Verified 03/30/25 22:47 ng PROPANOLOL AdvReac THROWS HER Uncoded 03/30/25 22:47 OFF BALANCE Home Meds Home Medications Medication Instructions Recorded Confirmed multivitamin 1 tab PO QAM 07/23/18 03/30/25 ascorbic acid (vitamin C) 500 mg 500 mg PO QAM 11/29/18 03/30/25 tablet (Vitamin C) solifenacin 10 mg tablet 10 mg PO DAILY 01/15/25 03/30/25 citalopram 20 mg tablet 20 mg PO DAILY 03/30/25 03/30/25 Previous Rx's Medication Instructions Recorded omega-3 fatty acids 1,000 mg 1,000 mg PO DAILY #30 caps 09/23/21 capsule bupropion HCl 150 mg tablet,12 hr 150 mg PO BID #180 ea 05/28/24 sustained-release cholecalciferol (vitamin D3) 10 10 mcg PO DAILY #90 tabs 05/28/24 mcg (400 unit) tablet lisinopril 10 mg tablet 10 mg PO DAILY #90 tabs 01/05/25 simvastatin 40 mg tablet 40 mg PO DAILY #90 tabs 01/05/25 triamcinolone acetonide 0.1 % 1 applic topical BID PRN rash on 01/15/25 topical cream hand #15 grams Results & Data (ED) Vital Signs Vital Signs - 24 hr 03/30/25 16:33 03/30/25 16:48 03/30/25 16:48 Temperature 36.6 C Temperature Source Oral Pulse Rate 80 Pulse Rate [Apical] 74 Pulse Rate from SpO2 Sensor Respiratory Rate 18 13 Respiratory Effort / Characteristics Non-Labored Spontaneous Non-Labored Spontaneous Respiratory Depth Normal Normal Respiratory Pattern Regular Regular Blood Pressure 172/107 H Blood Pressure [Right Arm] 155/97 H Blood Pressure Mean 128 Blood Pressure Mean [Right Arm] 116 Blood Pressure Position Semi-fowlers Blood Pressure Position [Right Arm] Semi-fowlers Pulse Oximetry 96 96 Oxygen Delivery Method Room Air Room Air Room Air Sepsis Recent Fever Within 48 Hours No Sepsis New/Unexplained Change in Mental Status No Sepsis Action Taken by Nursing No Action Required 03/30/25 17:11 03/30/25 17:15 03/30/25 17:16 Temperature Temperature Source Pulse Rate 71 78 Pulse Rate [Apical] Pulse Rate from SpO2 Sensor 74 Respiratory Rate 16 19 Respiratory Effort / Characteristics Respiratory Depth Respiratory Pattern Blood Pressure Blood Pressure [Right Arm] Blood Pressure Mean Blood Pressure Mean [Right Arm] Blood Pressure Position Blood Pressure Position [Right Arm] Pulse Oximetry 95 94 Oxygen Delivery Method Room Air Sepsis Recent Fever Within 48 Hours Sepsis New/Unexplained Change in Mental Status Sepsis Action Taken by Nursing 03/30/25 17:30 03/30/25 17:54 03/30/25 18:00 Temperature Temperature Source Pulse Rate 71 64 Pulse Rate [Apical] Pulse Rate from SpO2 Sensor 70 65 Respiratory Rate 23 20 Respiratory Effort / Characteristics Respiratory Depth Respiratory Pattern Blood Pressure Blood Pressure [Right Arm] 139/92 Blood Pressure Mean Blood Pressure Mean [Right Arm] 107 Blood Pressure Position Blood Pressure Position [Right Arm] Pulse Oximetry 98 94 Oxygen Delivery Method Sepsis Recent Fever Within 48 Hours Sepsis New/Unexplained Change in Mental Status Sepsis Action Taken by Nursing 03/30/25 18:00 03/30/25 18:00 03/30/25 18:12 Temperature Temperature Source Pulse Rate 74 Pulse Rate [Apical] Pulse Rate from SpO2 Sensor 74 Respiratory Rate 28 H Respiratory Effort / Characteristics Respiratory Depth Respiratory Pattern Blood Pressure 139/92 139/92 Blood Pressure [Right Arm] Blood Pressure Mean 109 109 Blood Pressure Mean [Right Arm] Blood Pressure Position Blood Pressure Position [Right Arm] Pulse Oximetry 95 Oxygen Delivery Method Sepsis Recent Fever Within 48 Hours Sepsis New/Unexplained Change in Mental Status Sepsis Action Taken by Nursing 03/30/25 18:32 03/30/25 18:59 03/30/25 19:00 Temperature Temperature Source Pulse Rate 71 75 Pulse Rate [Apical] Pulse Rate from SpO2 Sensor 72 76 Respiratory Rate 22 26 H Respiratory Effort / Characteristics Respiratory Depth Respiratory Pattern Blood Pressure 151/84 H Blood Pressure [Right Arm] Blood Pressure Mean 117 Blood Pressure Mean [Right Arm] Blood Pressure Position Blood Pressure Position [Right Arm] Pulse Oximetry 96 96 Oxygen Delivery Method Sepsis Recent Fever Within 48 Hours Sepsis New/Unexplained Change in Mental Status Sepsis Action Taken by Nursing 03/30/25 19:14 03/30/25 19:41 03/30/25 20:00 Temperature Temperature Source Pulse Rate 76 85 Pulse Rate [Apical] 78 Pulse Rate from SpO2 Sensor 77 85 Respiratory Rate 20 20 20 Respiratory Effort / Characteristics Non-Labored Spontaneous Respiratory Depth Normal Respiratory Pattern Regular Blood Pressure Blood Pressure [Right Arm] 129/87 Blood Pressure Mean Blood Pressure Mean [Right Arm] 101 Blood Pressure Position Blood Pressure Position [Right Arm] Semi-fowlers Pulse Oximetry 96 96 97 Oxygen Delivery Method Room Air Sepsis Recent Fever Within 48 Hours Sepsis New/Unexplained Change in Mental Status Sepsis Action Taken by Nursing 03/30/25 20:00 03/30/25 20:07 03/30/25 20:30 Temperature Temperature Source Pulse Rate 76 73 Pulse Rate [Apical] Pulse Rate from SpO2 Sensor 76 74 Respiratory Rate 22 20 Respiratory Effort / Characteristics Respiratory Depth Respiratory Pattern Blood Pressure 129/87 Blood Pressure [Right Arm] Blood Pressure Mean 112 Blood Pressure Mean [Right Arm] Blood Pressure Position Blood Pressure Position [Right Arm] Pulse Oximetry 98 98 Oxygen Delivery Method Sepsis Recent Fever Within 48 Hours Sepsis New/Unexplained Change in Mental Status Sepsis Action Taken by Nursing 03/30/25 20:45 03/30/25 21:00 03/30/25 21:06 Temperature Temperature Source Pulse Rate 75 77 Pulse Rate [Apical] Pulse Rate from SpO2 Sensor 75 76 Respiratory Rate 18 20 Respiratory Effort / Characteristics Respiratory Depth Respiratory Pattern Blood Pressure 133/77 Blood Pressure [Right Arm] Blood Pressure Mean 101 Blood Pressure Mean [Right Arm] Blood Pressure Position Blood Pressure Position [Right Arm] Pulse Oximetry 95 93 Oxygen Delivery Method Sepsis Recent Fever Within 48 Hours Sepsis New/Unexplained Change in Mental Status Sepsis Action Taken by Nursing 03/30/25 21:18 03/30/25 22:03 03/30/25 22:47 Temperature Temperature Source Pulse Rate 76 87 Pulse Rate [Apical] 90 Pulse Rate from SpO2 Sensor Respiratory Rate 20 22 Respiratory Effort / Characteristics Non-Labored Spontaneous Respiratory Depth Normal Respiratory Pattern Regular Blood Pressure Blood Pressure [Right Arm] 160/92 H Blood Pressure Mean Blood Pressure Mean [Right Arm] 114 Blood Pressure Position Blood Pressure Position [Right Arm] Semi-fowlers Pulse Oximetry 95 Oxygen Delivery Method Room Air Sepsis Recent Fever Within 48 Hours Sepsis New/Unexplained Change in Mental Status Sepsis Action Taken by Nursing Laboratory Data 03/30/25 17:25 03/30/25 17:25 Lab Results 03/30/25 03/30/25 Range/Units 17:25 18:52 WBC 6.32 (4.8-10.8) K/ul RBC 4.72 (4.20-5.40) M/uL Hgb 14.7 (12.0-16.0) g/dl Hct 43.7 (37.0-47.0) % MCV 92.6 (80.0-100.0) fL MCH 31.1 (25.0-34.0) pg MCHC 33.6 (32.0-36.0) g/dL RDW Std Deviation 42.9 (36.4-46.3) fL RDW Coeff of Gurpreet 12.6 (11.5-14.5) % Plt Count 259 (130-400) K/uL MPV 9.1 L (9.4-12.4) fL Immature Gran % (Auto) 0.2 % Neut % (Auto) 57.4 % Lymph % (Auto) 26.4 % [place] % (Auto) 10.3 % Eos % (Auto) 5.1 % Baso % (Auto) 0.6 % Neut # (Auto) 3.63 (1.40-6.50) K/uL Lymph # (Auto) 1.67 (1.20-3.40) K/uL [place] # (Auto) 0.65 H (0.11-0.59) K/uL Eos # (Auto) 0.32 (0.00-0.50) K/uL Baso # (Auto) 0.04 (0.00-0.20) K/uL Immature Gran # (Auto) 0.01 (0.01-0.20) K/uL PT 10.7 (9.0-12.0) Seconds INR 1.0 (0.9-1.1) D-Dimer 1240 H* (0-500) ug/L FEU Sodium 138 (136-145) mmol/L Potassium 4.0 (3.5-5.1) mmol/L Chloride 105 (98-107) mmol/L Carbon Dioxide 25 (21-32) mmol/L Anion Gap 8 (3-11) BUN 17 (6-23) mg/dl Creatinine 0.71 (0.6-1.2) mg/dl Est Cr Clr Drug Dosing 71.4 ml/min eGFR 88.06 BUN/Creatinine Ratio 23.9 H (10-20) Glucose 91 (70-99(Fasting)) mg/dl Calcium 9.5 (8.6-10.3) mg/dl Magnesium 2.3 (1.7-2.4) mg/dl Total Bilirubin 0.9 (0.2-1.0) mg/dl AST 34 (13-39) U/L ALT 30 (7-52) U/L Alkaline Phosphatase 46 (34-104) U/L Troponin I High Sens 6.7 (0-14) pg/ml Total Protein 7.9 (6.0-8.3) gm/dl Albumin 4.6 (3.4-5.0) gm/dl Globulin 3.3 (2.5-4.0) gm/dl Albumin/Globulin Ratio 1.4 (0.9-2) Lipase 15 (11-82) U/L TSH 1.768 (0.300-4.500) uIu/ml Urine Color Yellow Urine Appearance Clear (Clear) Urine pH 7.0 (4.5-7.5) Ur Specific [place] 1.012 (1.000-1.030) Urine Protein Negative (Negative) Urine Glucose (UA) Negative (Negative) Urine Ketones Negative (Negative) Urine Blood Negative (Negative) Urine Nitrite Negative (Negative) Urine Bilirubin Negative (Negative) Urine Urobilinogen Negative (Negative) Ur Leukocyte Esterase Negative (Negative) Urine Comment Administered Medications Discontinued Medications Ioversol (Optiray 320 125ml) 118 ml IV ONCE ONE Stop: 03/30/25 19:33 Last Admin: 03/30/25 19:32 Dose: 118 ml Documented By: [facility] Data Radiologist's Impression: Chest X-Ray 03/30/25 16:57 EXAM: Portable AP chest radiograph TECHNIQUE: AP portable radiograph of the chest was obtained. INDICATION: Shortness of breath Comparison: Chest radiograph January 09, 2019. FINDINGS: LINES and TUBES: None CARDIOVASCULAR: Cardiac silhouette is mildly enlarged in size. Atherosclerosis thoracic aorta. LUNGS/PLEURA: No focal consolidation identified. Mild pulmonary vascular congestion. No significant pleural fluid. No discernible pneumothorax. No significant interval change in the reticular density over the right upper lobe, favor scarring. OSSEOUS/OTHER: No displaced acute osseous process identified. IMPRESSION: Mild congestive changes of the cardiovascular system. Electronically signed by Octavio Turner 03-30-2025 6:28 PM Chest CTA 03/30/25 18:40 CT PULMONARY ANGIOGRAM. HISTORY: Chest pain TECHNIQUE: Enhanced CT examination of the chest was performed using pulmonary embolism protocol. IV CONTRAST: 100 mL of OMNIPAQUE 300 COMPARISON: FINDINGS: PULMONARY ARTERIES: No filling defect identified to the segmental level. LYMPH NODES: No lymphadenopathy by size criteria. CARDIOVASCULAR: Enlarged cardiac size. No right heart strain. No pericardial effusion. No aortic aneurysm. There are coronary artery and valvula calcifications. MEDIASTINUM: No solid or cystic mediastinal masses. The esophagus is normally decompressed. LUNGS/PLEURA: The central tracheo-bronchial tree is patent. No mass or consolidation identified. Right upper lobe subpleural scarring. No pleural effusion or pneumothorax. No suspicious pulmonary nodules. BONES: No suspicious osseous lesions. VISUALIZED LOWER NECK: Unremarkable. VISUALIZED UPPER ABDOMEN: Small hiatal hernia. Hepatic steatosis and hepatomegaly. IMPRESSION: No pulmonary embolism identified to the segmental level. Cardiomegaly without right heart strain. Electronically signed by Octavio Turner 03-30-2025 9:[address] 03/30/25 18:40 CT HEAD: HISTORY: Headaches. Syncope. TECHNIQUE: Noncontrast CT examination of the head is performed. Coronal and sagittal reformats were created. COMPARISON: None FINDINGS: There is no evidence of intracranial hemorrhage, focal mass effect or midline shift. No fluid collection is identified. The ventricular system is midline and symmetric. No evidence of acute major vascular territory infarction. Age-related involutional changes of the brain and chronic white matter ischemic changes. No calvarial fracture is identified. The paranasal sinuses and mastoids are well aerated. IMPRESSION: No acute intracranial process identified. Chronic findings as above Electronically signed by Octavio Turner 03-30-2025 9:06 PM Discharge Plan Visit Data Chief Complaint: Syncope Stated Complaint: SYNCOPE, FALL, L SHOULDER PAIN ED Provider: Kely Guido Discharge Problem: Syncope Condition: Fair Forms Stand Alone Forms: [facility] PANOSOL Prescriptions Prescriptions: No Action bupropion HCl 150 mg tablet sustained-release 12 hr 150 mg PO BID Qty: 180 2RF cholecalciferol (vitamin D3) 10 mcg (400 unit) tablet 10 mcg PO DAILY Qty: 90 0RF lisinopril 10 mg tablet 10 mg PO DAILY Qty: 90 3RF simvastatin 40 mg tablet 40 mg PO DAILY Qty: 90 3RF omega-3 fatty acids 1,000 mg capsule 1,000 mg PO DAILY Qty: 30 0RF triamcinolone acetonide 0.1 % cream 1 applic topical BID PRN (Reason: rash on hand) Qty: 15 1RF Rx Instructions: Use for no longer than 2 wks. solifenacin 10 mg tablet 10 mg PO DAILY ascorbic acid (vitamin C) [Vitamin C] 500 mg Tablet 500 mg PO QAM multivitamin Tablet 1 tab PO QAM citalopram 20 mg tablet 20 mg PO DAILY Referrals Referrals: Janell Gibson MD [Primary Care Provider] -
[2025-03-30 17:42] LABS: Hematocrit (blood only) 43.7 % (37.0-47.0); Hemoglobin 14.7 g/dl (12.0-16.0); Immature Granulocytes # (auto) 0.01 K/uL (0.01-0.20); Immature Granulocytes % (auto) 0.2 %; Mean Corpuscular Hemoglobin 31.1 pg (25.0-34.0); Mean Corpuscular Volume 92.6 fL (80.0-100.0); Platelet Count 259 K/uL (130-400); RDW Standard Deviation 42.9 fL (36.4-46.3); Red Blood Count 4.72 M/uL (4.20-5.40); White Blood Count 6.32 K/ul (4.8-10.8)
[2025-03-30 18:10] LABS: Albumin Globulin Ratio 1.4 (0.9-2); Anion Gap 8.0 (3-11); Bilirubin,Total 0.9 mg/dl (0.2-1.0); Globulin 3.3 gm/dl (2.5-4.0); Lipase 15.0 U/L (11-82); Magnesium 2.3 mg/dl (1.7-2.4); Potassium 4.0 mmol/L (3.5-5.1); Sodium 138.0 mmol/L (136-145); Total Protein 7.9 gm/dl (6.0-8.3)
[2025-03-30 18:13] LABS: Alanine Aminotransferase 30.0 U/L (7-52); Alkaline Phosphatase 46.0 U/L (34-104); Blood Urea Nitrogen 17.0 mg/dl (6-23); Calcium 9.5 mg/dl (8.6-10.3); Carbon Dioxide 25.0 mmol/L (21-32); Chloride 105.0 mmol/L (98-107); Creatinine Clr Calc Pharmacy 71.4 ml/min; Glucose 91.0 mg/dl (70-99(Fasting))
[2025-03-30 18:15] LABS: Thyroid Stimulating Hormone 1.768 uIu/ml (0.300-4.500)
--- NOTE | 2025-03-30 18:28 | XRay Report ---
EXAM: Portable AP chest radiograph TECHNIQUE: AP portable radiograph of the chest was obtained. INDICATION: Shortness of breath Comparison: Chest radiograph January 09, 2019. FINDINGS: LINES and TUBES: None CARDIOVASCULAR: Cardiac silhouette is mildly enlarged in size. Atherosclerosis thoracic aorta. LUNGS/PLEURA: No focal consolidation identified. Mild pulmonary vascular congestion. No significant pleural fluid. No discernible pneumothorax. No significant interval change in the reticular density over the right upper lobe, favor scarring. OSSEOUS/OTHER: No displaced acute osseous process identified. IMPRESSION: Mild congestive changes of the cardiovascular system. Electronically signed by Octavio Turner 03-30-2025 6:28 PM
[2025-03-30 18:37] LABS: INR 1.0 (0.9-1.1); Prothrombin Time 10.7 Seconds (9.0-12.0)
[2025-03-30 19:13] LABS: Appearance Urine Clear (Clear); Glucose Urine UA Negative (Negative)
[2025-03-30] MEDS: OPTIRAY 320 125ml IV ONE (19:32)
--- NOTE | 2025-03-30 21:06 | CT Scan Report ---
CT HEAD: HISTORY: Headaches. Syncope. TECHNIQUE: Noncontrast CT examination of the head is performed. Coronal and sagittal reformats were created. COMPARISON: None FINDINGS: There is no evidence of intracranial hemorrhage, focal mass effect or midline shift. No fluid collection is identified. The ventricular system is midline and symmetric. No evidence of acute major vascular territory infarction. Age-related involutional changes of the brain and chronic white matter ischemic changes. No calvarial fracture is identified. The paranasal sinuses and mastoids are well aerated. IMPRESSION: No acute intracranial process identified. Chronic findings as above Electronically signed by Octavio Turner 03-30-2025 9:06 PM
--- NOTE | 2025-03-30 21:06 | CT Scan Report ---
CT PULMONARY ANGIOGRAM. HISTORY: Chest pain TECHNIQUE: Enhanced CT examination of the chest was performed using pulmonary embolism protocol. IV CONTRAST: 100 mL of OMNIPAQUE 300 COMPARISON: FINDINGS: PULMONARY ARTERIES: No filling defect identified to the segmental level. LYMPH NODES: No lymphadenopathy by size criteria. CARDIOVASCULAR: Enlarged cardiac size. No right heart strain. No pericardial effusion. No aortic aneurysm. There are coronary artery and valvula calcifications. MEDIASTINUM: No solid or cystic mediastinal masses. The esophagus is normally decompressed. LUNGS/PLEURA: The central tracheo-bronchial tree is patent. No mass or consolidation identified. Right upper lobe subpleural scarring. No pleural effusion or pneumothorax. No suspicious pulmonary nodules. BONES: No suspicious osseous lesions. VISUALIZED LOWER NECK: Unremarkable. VISUALIZED UPPER ABDOMEN: Small hiatal hernia. Hepatic steatosis and hepatomegaly. IMPRESSION: No pulmonary embolism identified to the segmental level. Cardiomegaly without right heart strain. Electronically signed by Octavio Turner 03-30-2025 9:06 PM
--- NOTE | 2025-03-30 22:43 | History & Physical Report ---
Date of Service March 30, 2025 Assessment & Plan (1) Syncope: (2) Leg edema, left: (3) Depression: (4) Hypertension: Plan Pt is a 74 yo female with a past med hx of HTN, HLD, osteoarthritis of several joints, chronic edema of L leg per pt, and depression who presents to the [facility] on 03/30 for recurrent episodes of syncope. #Syncope - episode suggestive of presyncope in August with two episodes of synope on 03/30 while at another medical facility - echo was already done 2 weeks ago at [facility]; I did not see record in the chart for this; HIM consult placed to see if we can obtain this record - will monitor overnight on telemetry - pending orthostatics - CXR did show some congestive changes but pt is without SOB/hypoxia, will defer diuresis at this time - will consult cardiology but ultimately pt needs event monitor of some sort to assess cardiac state during these episodes #L leg swelling - although chronic per pt, d-dimer is elevated, will do L leg US to evaluate for DVT - CTA for PE is negative #Depression - continue home meds #HTN - continue home meds VTE ppx: lovenox Code status: for now pt would like resuscitation efforts but does not want intubation/ventilation, pt overall very unclear on wants but voices this is her decision for now, but would like time to think further on if she would truly want CPR or not, 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 Pt states that the start of her story of any real issues dates back to Maddi time 2023, months ago. She states no issues prior to that. She states she was at [employer] doing some holiday shopping and that when she was walking around the store she had a sudden onset of symptoms of nausea, diaphoresis, lightheadedness and feeling like she was going to pass out. She states she took deep breaths and the symptoms subsided so she made her way to the [employer] register. She states when she was at the register, her symptoms started back again. She states she then went out to her car to sit in with the air conditioning running on her face even though it was August at that time and quite cold out. She states symptoms subsided and she was able to drive home without issue and then has had no issues again until today. She states that these episodes in August felt different than her episodes today since the episodes today had no warning but was unsure if there could be any relation between them. She states she saw her PCP in January who noted a murmur and ordered an echo. She states she got the echo done 2 weeks ago at [facility] and states she was told it was normal. She states the episodes today were when she was taking her sister to [facility] for a procedure. She states she has not been sick recently. She states she has been keeping well hydrated. She states the episodes today both happened without any presyncopal symptoms, just a sudden black out episode for a few seconds. She denies incontinence. No muscle aches, just some shoulder pain from the fall which was scanned at [facility]. She states that after the first time she was monitored for a few hours at [facility] and then when walking around with the nurse for several minutes to see how she feels she had a second episode, prompting her to come in today. Right now, pt states she is feeling well, no chest pain or SOB. She denies hx of arrhythmias. No hx NV/CVA. No recent medication changes the last few months. She lives alone with her cat and is independent in all of her ADLs. No hx PE/DVT. She does note chronic L leg edema and states she needs to have an orthopedic surgery on her ankle at some point on that side. Swelling is not worse today. No fevers or chills. Allergies Allergy/AdvReac Type Severity Reaction Status Date / Time amoxicillin Allergy Intermediate HIVES Verified 03/30/25 22:47 Penicillins Allergy Intermediate HIVES Verified 03/30/25 22:47 sulfamethoxazole AdvReac Intermediate Dizziness, Verified 03/30/25 22:47 lightheadedness, falls hydromorphone [From Dilaudid] AdvReac Hallucinati Verified 03/30/25 22:47 ng propranolol AdvReac THROWS HER Verified 03/31/25 01:23 OFF BALANCE Home Medications Medication Instructions Recorded Confirmed Type multivitamin 1 tab PO QAM 07/23/18 03/30/25 History ascorbic acid (vitamin C) 500 mg 500 mg PO QAM 11/29/18 03/30/25 History tablet (Vitamin C) omega-3 fatty acids 1,000 mg 1,000 mg PO DAILY #30 caps 09/23/21 03/30/25 Rx capsule bupropion HCl 150 mg tablet,12 hr 150 mg PO BID #180 ea 05/28/24 03/30/25 Rx sustained-release cholecalciferol (vitamin D3) 10 10 mcg PO DAILY #90 tabs 05/28/24 03/30/25 Rx mcg (400 unit) tablet lisinopril 10 mg tablet 10 mg PO DAILY #90 tabs 01/05/25 03/30/25 Rx simvastatin 40 mg tablet 40 mg PO DAILY #90 tabs 01/05/25 03/30/25 Rx solifenacin 10 mg tablet 10 mg PO DAILY 01/15/25 03/30/25 History triamcinolone acetonide 0.1 % 1 applic topical BID PRN rash on 01/15/25 03/30/25 Rx topical cream hand #15 grams citalopram 20 mg tablet 20 mg PO DAILY 03/30/25 03/30/25 History Past Med/Surg History Problem List (Updated 03/31/25 @ 00:03 by Kely Guido MD) Syncope (Acute) Leg edema, left Syncope Status post left knee replacement 04/25/22 Osteoarthritis of knee Carpal tunnel syndrome, left CMC arthritis Hyperglycemia Cigarette smoker Essential tremor Urinary incontinence Status post left hip replacement Radicular pain of left lower extremity Lumbar disc herniation Insomnia Hyponatremia Hypertension Hyperlipidemia Depression Dependent edema Anxiety Acid reflux Medical History (Updated 03/31/25 @ 00:03 by Kely Guido MD) History of DVT (deep vein thrombosis) Fusion of spine LOWER BACK Temporomandibular joint disorder CLICKS-HAS NEVER LOCKED Tremor SLIGHT QUIVER OF LIP-F/U DR PEREA History of pneumonia 2017?-SYMPTOMS RESOLVED Foot drop LEFT 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 STENOSIS Osteoarthritis Chronic back pain Urinary incontinence OVERACTIVE Depression Anxiety Hyperlipidemia Hypertension Surgical History Hx of hand surgery History of lumbar laminectomy (~2019) Lumbar laminectomy, foraminotomy, partial facetectomy, posterolateral fusion, dura repair Nausea and vomiting after administration of anesthetic agent History of discectomy History of arthroscopy LEFT KNEE H/O foot surgery B/L 2/2 PLANTAR FASCITIS History of total knee replacement RIGHT History of tonsillectomy History of adenoidectomy Family History Mother , age 58 Depression Alzheimer disease, Onset Age: 54 Anxiety Sister Anxiety Diabetes Depression Stroke History of high blood pressure Father , age 83 Alcohol abuse COPD (chronic obstructive pulmonary disease) Brother Heart disease Diabetes Denies family history of Ovarian cancer Prostate cancer Myocardial infarction Breast cancer Colorectal cancer Social History Smoking Status: Former smoker Tobacco Type: Cigarettes Age Started Using Tobacco: 16; Age Quit Using Tobacco: 74; packs per day: 0.5; Cigarettes Per Day: 0.5ppd at the most; Smoking End Date: 9 months ago; Second Hand Exposure: No; Do You Dip or Chew Tobacco: No; Hx Alcohol Use: Yes Alcohol type: beer and wine Alcohol type Comment: rarely Alcohol Intake Frequency: Monthly or Less Hx Substance Use: No Preferred Language: Malagasy Communication Ability: Effective Visual Impairment: Limited Hearing Ability: Normal Soyfreeze Operator Required: No Beliefs That Will Affect Care: None marital status: Legally Current Living Situation: Alone current occupational status: retired 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 Physical Exam Physical Exam: General: Alert and oriented, no acute distress, HEENT: Normocephalic, moist oral mucosa, Cardio: Regular rate and rhythm, soft murmur, Resp: Lungs clear to auscultation b/l, no wheezes or rhonchi, GI: Soft and nontender, nondistended, bowel sounds active Skin: Warm, pink, dry, Ext: L leg with 1+ pitting edema from mid/lower duong to and including L ankle, no erythema noted Results & Data Results & Data Vital Signs (Past 12 Hours) Vital Signs Temp Pulse Pulse Resp BP BP Pulse Ox 03/30/25 22:03 87 20 03/30/25 21:18 76 03/30/25 21:06 77 20 93 03/30/25 21:00 133/77 03/30/25 20:45 75 18 95 03/30/25 20:30 73 20 98 03/30/25 20:07 129/87 03/30/25 20:00 76 22 98 03/30/25 20:00 78 20 129/87 97 03/30/25 19:41 85 20 96 03/30/25 19:14 76 20 96 03/30/25 19:00 151/84 H 03/30/25 18:59 75 26 H 96 03/30/25 18:32 71 22 96 03/30/25 18:12 74 28 H 95 03/30/25 18:00 139/92 03/30/25 18:00 139/92 03/30/25 18:00 139/92 03/30/25 17:54 64 20 94 03/30/25 17:30 71 23 98 03/30/25 17:16 78 03/30/25 17:15 71 19 94 03/30/25 17:11 16 95 03/30/25 16:48 74 13 155/97 H 96 03/30/25 16:48 03/30/25 16:33 36.6 C 80 18 172/107 H 96 O2 Del Method 03/30/25 22:03 03/30/25 21:18 03/30/25 21:06 03/30/25 21:00 03/30/25 20:45 03/30/25 20:30 03/30/25 20:07 03/30/25 20:00 03/30/25 20:00 Room Air 03/30/25 19:41 03/30/25 19:14 03/30/25 19:00 03/30/25 18:59 03/30/25 18:32 03/30/25 18:12 03/30/25 18:00 03/30/25 18:00 03/30/25 18:00 03/30/25 17:54 03/30/25 17:30 03/30/25 17:16 03/30/25 17:15 03/30/25 17:11 Room Air 03/30/25 16:48 Room Air 03/30/25 16:48 Room Air 03/30/25 16:33 Room Air Supervising Physician Co-Signing Physician Notes I personally saw and examined the patient. I independently reviewed the labs, EKG, imaging, problem list, medication list, past medical history and family history. I verified all seals points and agree with resident physician Dr Margy Barron, with the following exceptions and/or additions: 74 year old female presents to the ER with syncopal event without any prodromal symptoms. Episode in August appears to be different related to sweating and nausea O/E HS RRR, systolic LUSB murmur, Chest CTAB, Abdo SNT A/P Syncope - monitor on telemetry overnight, consider outpatient event monitor Resident Activity Tracking Resident Involvement: Resident Care Provided Care Provided: Adult Hospital Medicine
--- NOTE | 2025-03-31 00:41 | Ultrasound Report ---
Exam(s): US VENOUS LEFT LOWER EXTREMITY EXAM: US Duplex Left Lower Extremity Veins CLINICAL HISTORY: DVT?. TECHNIQUE: Real-time duplex ultrasound scan of the left lower extremity veins integrating B-mode two-dimensional vascular structure, Doppler spectral analysis, color flow Doppler imaging and compression. COMPARISON: No relevant prior studies available. FINDINGS: Deep veins: No DVT in the visualized common femoral, femoral, proximal deep femoral or popliteal veins. The veins demonstrate normal color flow, are normally compressible, with normal phasic flow and/or augmentation response. The interrogated calf veins are patent. Superficial veins: No thrombus in the saphenofemoral junction. Soft tissues: No acute findings. No popliteal cyst. IMPRESSION: No evidence for deep vein thrombosis involving the left lower extremity. Electronically signed by: Alberto Amanda MD 03/31/25 00:40 AM
[2025-03-31] MEDS ORDERED: MELATONIN 3 MG TAB PO PRN (01:21)
[2025-03-31] MEDS ORDERED: ONDANSETRON INJ 2 MG/ML 2 ML VIAL IV PRN (01:21)
[2025-03-31] MEDS ORDERED: POLYETHYLENE (MIRALAX) 17 GM PACK PO PRN (01:21)
[2025-03-31 01:44] VITALS: O2SAT 95
--- NOTE | 2025-03-31 06:55 | Billing Data ---
Date of Service March 30, 2025 Coding Level of Care Code 61336 INT INP/OBS CARE
[2025-03-31 07:14] VITALS: BP 150/78; RESP 17; TEMP 97.5
[2025-03-31 07:41] LABS: Hematocrit (blood only) 41.0 % (37.0-47.0); Hemoglobin 13.7 g/dl (12.0-16.0); Immature Granulocytes # (auto) 0.01 K/uL (0.01-0.20); Immature Granulocytes % (auto) 0.2 %; Mean Corpuscular Hemoglobin 31.8 pg (25.0-34.0); Mean Corpuscular Volume 95.1 fL (80.0-100.0); Platelet Count 202 K/uL (130-400); RDW Standard Deviation 43.4 fL (36.4-46.3); Red Blood Count 4.31 M/uL (4.20-5.40); White Blood Count 6.57 K/ul (4.8-10.8)
[2025-03-31 07:53] LABS: Alanine Aminotransferase 25.0 U/L (7-52); Albumin Globulin Ratio 1.4 (0.9-2); Alkaline Phosphatase 39.0 U/L (34-104); Anion Gap 6.0 (3-11); Bilirubin,Total 0.8 mg/dl (0.2-1.0); Blood Urea Nitrogen 15.0 mg/dl (6-23); Calcium 8.8 mg/dl (8.6-10.3); Carbon Dioxide 26.0 mmol/L (21-32); Chloride 107.0 mmol/L (98-107); Creatinine Clr Calc Pharmacy 64.1 ml/min; Globulin 2.9 gm/dl (2.5-4.0); Glucose 92.0 mg/dl (70-99(Fasting)); Magnesium 2.3 mg/dl (1.7-2.4); Potassium 4.4 mmol/L (3.5-5.1); Sodium 139.0 mmol/L (136-145); Total Protein 6.9 gm/dl (6.0-8.3)
[2025-03-31] MEDS: CITALOPRAM 20 MG TAB PO SCH (08:08)
[2025-03-31] MEDS: SIMVASTATIN 40 MG TAB PO SCH (08:08)
[2025-03-31] MEDS: ENOXAPARIN INJ 40 MG/0.4 ML SYR SQ SCH (08:08)
[2025-03-31] MEDS: OXYBUTYNIN CHLORIDE XL 5 MG TABCR PO SCH (08:08)
[2025-03-31] MEDS: ACETAMINOPHEN 325 MG TAB PO PRN (08:12)
--- NOTE | 2025-03-31 09:06 | Cardiology Consultation ---
Date of Consultation March 31, 2025 Assessment & Plan (1) Syncope: (2) Near syncope: (3) Hypertension: (4) Hyperlipidemia: (5) Cigarette smoker: Plan Mrs. Cantrell is a 74 year old female with a history of Hypertension, Hyperlipidemia, Prior DVT, Depression/Anxiety, Osteoarthritis s/p Bilateral TKA's, and Lumbar Degenerative Disc Disease who was admitted to [facility] on 03/30/25 after sustaining 2 Syncopal Episodes. Patient states that she was completely asymptomatic until around 2023 when she was at [employer] doing some holiday shopping and that when she was walking around the store she had a sudden onset of symptoms of nausea, diaphoresis, lightheadedness and feeling like she was going to pass out. This lasted a couple of minutes and then gradually resolved. She states she took deep breaths and the symptoms subsided so she made her way to the [employer]. She states when she was at the register, the same symptoms occurred. She then went out to her car to sit in with the air conditioning running on her face even though it was Buzz at that time and quite cold out. She states symptoms subsided and she was able to drive home without further issues. On the day of admission she had taken her sister to [facility] for an outpatient surgery earlier that day. She states that around 9:45 a.m. while walking and talking to a nurse she "fell to the ground." She is not sure if she lost consciousness or not. This event resulted in pain in her left shoulder (fracture ruled out) Patient did not have any warning symptoms -- specifically denying any nausea, vomiting, diaphoresis, dyspnea, palpitations, dizziness, or lightheadedness prior to going to ground. She denies any tripping or mechanical falls. EMS reports that she was witnessed to just pass out. Provider at [facility] reportedly was monitoring the patient on telemetry and ordered an x-ray of the left shoulder. Patient was being set up to be discharged, she was feeling well after being monitored at [facility]. However, when she got up to get around to be discharged, she had another syncopal episode/became unresponsive. Again she denies denies any prodromal warning symptoms. EMS was summoned and she was brought into [facility]. Patient has remained asymptomatic since being admitted, cardiac monitoring reveals sinus rhythm at normal rates yesterday and today. EKG 03/30/25 shows NSR at 71 bpm, minimal voltage criteria for LVH may be a normal variant. High sensitivity Troponin I is normal at 6.7 pg/mL, follow-up value is pending. Normal CBC with diff, normal chemistry panel, and normal TSH. D-dimer elevated at 1240 ug/L but CTA Chest and Lungs without evidence of a PE. She is compliant with her medications and has not had any side effects. No recent medication changes. Patient sounds like her near syncopal episodes in August 2024 were vagally mediated, however her syncopal episodes x 2 on 03/30/25 had no prodromal warning symptoms and are more concerning for cardiogenic syncope. Recommend the following: -- 30 Day Cardiac Event Monitor, apply at [facility] following discharge from the hospital. -- If cardiac event monitor is unrevealing, strongly consider an implantable loop recorder. -- Continue Lisinopril 10 mg daily. -- Continue Simvastatin 40 mg daily. -- Vassar 3 1000 mg daily. -- Continue all other medications as directed. -- Encouraged smoking cessation. Thank you for asking us to see this patient in consultation. History of Present Illness Reason for Consultation: Syncope x 2. Requesting Physician: Natanael Hanna MD, PhD Attending Physician: Sergio Stewart MD History of Present Illness Mrs. Cantrell is a 74 year old female with a history of Hypertension, Hyperlipidemia, Prior DVT, Depression/Anxiety, Osteoarthritis s/p Bilateral TKA's, and Lumbar Degenerative Disc Disease who was admitted to [facility] on 03/30/25 after sustaining 2 Syncopal Episodes. Patient states that she was completely asymptomatic until around 2023 when she was at [employer] doing some holiday shopping and that when she was [employer] around the store she had a sudden onset of symptoms of nausea, diaphoresis, lightheadedness and feeling like she was going to pass out. This lasted a couple of minutes and then gradually resolved. She states she took deep breaths and the symptoms subsided so she made her way to the [employer]. She states when she was at the register, the same symptoms occurred. She then went out to her car to sit in with the air conditioning running on her face even though it was August at that time and quite cold out. She states symptoms subsided and she was able to drive home without further issues. On the day of admission she had taken her sister to [facility] for an outpatient surgery earlier that day. She states that around 9:45 a.m. while walking and talking to a nurse she "fell to the ground." She is not sure if she lost consciousness or not. This event resulted in pain in her left shoulder (fracture ruled out) Patient did not have any warning symptoms -- specifically denying any nausea, vomiting, diaphoresis, dyspnea, palpitations, dizziness, or lightheadedness prior to going to ground. She denies any tripping or mechanical falls. EMS reports that she was witnessed to just pass out. Provider at [facility] reportedly was monitoring the patient on telemetry and ordered an x-ray of the left shoulder. Patient was being set up to be discharged, she was feeling well after being monitored at [facility]. However, when she got up to get around to be discharged, she had another syncopal episode/became unresponsive. Again she denies denies any prodromal warning symptoms. EMS was summoned and she was brought into [facility]. Patient has remained asymptomatic since being admitted, cardiac monitoring reveals sinus rhythm at normal rates yesterday and today. EKG 03/30/25 shows NSR at 71 bpm, minimal voltage criteria for LVH may be a normal variant. High sensitivity Troponin I is normal at 6.7 pg/mL, follow-up value is pending. Normal CBC with diff, normal chemistry panel, and normal TSH. D-dimer elevated at 1240 ug/L but CTA Chest and Lungs without evidence of a PE. She is compliant with her medications and has not had any side effects. No recent medication changes. Allergies Allergy/AdvReac Type Severity Reaction Status Date / Time amoxicillin Allergy Intermediate HIVES Verified 03/30/25 22:47 Penicillins Allergy Intermediate HIVES Verified 03/30/25 22:47 sulfamethoxazole AdvReac Intermediate Dizziness, Verified 03/30/25 22:47 lightheadedness, falls hydromorphone [From Dilaudid] AdvReac Hallucinati Verified 03/30/25 22:47 ng propranolol AdvReac THROWS HER Verified 03/31/25 01:23 OFF BALANCE Home Medications Medication Instructions Recorded Confirmed Type omega-3 fatty acids 1,000 mg 1,000 mg PO DAILY #30 caps 09/23/21 03/30/25 Rx capsule bupropion HCl 150 mg tablet,12 hr 150 mg PO BID #180 ea 05/28/24 03/30/25 Rx sustained-release lisinopril 10 mg tablet 10 mg PO DAILY #90 tabs 01/05/25 03/30/25 Rx simvastatin 40 mg tablet 40 mg PO DAILY #90 tabs 01/05/25 03/30/25 Rx triamcinolone acetonide 0.1 % 1 applic topical BID PRN rash on 01/15/25 03/30/25 Rx topical cream hand #15 grams citalopram 20 mg tablet 20 mg PO DAILY 03/30/25 03/30/25 History Patient History Medical History History of DVT (deep vein thrombosis) Fusion of spine LOWER BACK Temporomandibular joint disorder CLICKS-HAS NEVER LOCKED Tremor SLIGHT QUIVER OF LIP-F/U DR GIBSON History of pneumonia 2017?-SYMPTOMS RESOLVED Foot drop LEFT 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 STENOSIS Osteoarthritis Chronic back pain Urinary incontinence OVERACTIVE Depression Anxiety Hyperlipidemia Hypertension Surgical History Hx of hand surgery History of lumbar laminectomy (~2018) Lumbar laminectomy, foraminotomy, partial facetectomy, posterolateral fusion, dura repair Nausea and vomiting after administration of anesthetic agent History of discectomy History of arthroscopy LEFT KNEE H/O foot surgery B/L 2/2 PLANTAR FASCITIS History of total knee replacement RIGHT History of tonsillectomy History of adenoidectomy Family History Mother , age 58 Depression Alzheimer disease, Onset Age: 54 Anxiety Sister Anxiety Diabetes Depression Stroke History of high blood pressure Father , age 83 Alcohol abuse COPD (chronic obstructive pulmonary disease) Brother Heart disease Diabetes Denies family history of Ovarian cancer Prostate cancer Myocardial infarction Breast cancer Colorectal cancer Social History Smoking Status: Former smoker Tobacco Type: Cigarettes Age Started Using Tobacco: 16; Age Quit Using Tobacco: 74; packs per day: 0.5; Cigarettes Per Day: 0.5ppd at the most; Second Hand Exposure: No; Do You Dip or Chew Tobacco: No; Hx Alcohol Use: Yes Alcohol type: beer and wine Alcohol type Comment: rarely Alcohol Intake Frequency: Monthly or Less Hx Substance Use: No Preferred Language: Danish Communication Ability: Effective Visual Impairment: Limited Hearing Ability: Normal Mother Superior Required: No Beliefs That Will Affect Care: None marital status: Legally Current Living Situation: Alone current occupational status: retired 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 Physical Exam Physical Exam: GENERAL: Patient in no acute distress. HEENT: Head is atraumatic, normocephalic. EOM's intact. Facies symmetric. No perioral cyanosis. NECK: No JVD. JVP is not elevated. Carotid upstrokes are + 2 bilaterally. No bruits. CHEST/LUNGS: Clear to auscultation throughout all lung gonsales. No wheezes, rales, or crackles. CVS: S1 and S2 are regular without murmurs, gallops, or rubs. PMI is nonpalpable. No lifts, heaves, or thrills. No abdominal aortic or renal bruits. ABDOMINAL EXAM: Bowel sounds are present. EXTREMITIES: No clubbing or cyanosis. trace left foot edema. Extremities are well perfused. NEUROLOGIC EXAM: Patient is awake, alert, and oriented. Pleasant and cooperative. Answers questions appropriately. Speech is clear. 30 Cardiac Event Monitor can be placed f ollowing discharge at [facility] Card[facility]. Results & Data Vital Signs (Past 12 Hours) Vital Signs Temp Pulse Pulse Resp BP BP Pulse Ox 03/31/25 07:18 74 03/31/25 07:13 36.4 C L 75 17 150/78 H 95 03/31/25 01:45 03/31/25 01:45 36.5 C 83 16 179/88 H 95 03/31/25 01:25 82 07/15/25 01:21 36.5 C 83 16 179/88 H 95 03/31/25 00:59 72 18 141/83 H 98 03/31/25 00:00 88 17 152/74 H 98 03/30/25 22:47 90 22 160/92 H 95 03/30/25 22:03 87 20 03/30/25 21:18 76 03/30/25 21:06 77 20 93 O2 Del Method 03/31/25 07:18 03/31/25 07:13 Room Air 03/31/25 01:45 Room Air 03/31/25 01:45 Room Air 03/31/25 01:25 03/31/25 01:21 Room Air 03/31/25 00:59 Room Air 03/31/25 00:00 Room Air 03/30/25 22:47 Room Air 03/30/25 22:03 03/30/25 21:18 03/30/25 21:06 Laboratory Results Laboratory Results - last 24 hr 03/30/25 03/30/25 03/31/25 17:25 18:52 07:00 WBC 6.32 6.57 RBC 4.72 4.31 Hgb 14.7 13.7 Hct 43.7 41.0 MCV 92.6 95.1 MCH 31.1 31.8 MCHC 33.6 33.4 RDW Std Deviation 42.9 43.4 RDW Coeff of Gurpreet 12.6 12.5 Plt Count 259 202 MPV 9.1 L 10.3 Immature Gran % (Auto) 0.2 0.2 Neut % (Auto) 57.4 55.9 Lymph % (Auto) 26.4 28.8 Ramsey % (Auto) 10.3 9.4 Eos % (Auto) 5.1 5.2 Baso % (Auto) 0.6 0.5 Neut # (Auto) 3.63 3.68 Lymph # (Auto) 1.67 1.89 Ramsey # (Auto) 0.65 H 0.62 H Eos # (Auto) 0.32 0.34 Baso # (Auto) 0.04 0.03 Immature Gran # (Auto) 0.01 0.01 PT 10.7 INR 1.0 D-Dimer 1240 H* Sodium 138 139 Potassium 4.0 4.4 Chloride 105 107 Carbon Dioxide 25 26 Anion Gap 8 6 BUN 17 15 Creatinine 0.71 0.77 Est Cr Clr Drug Dosing 71.4 64.1 eGFR 88.06 79.90 BUN/Creatinine Ratio 23.9 H 19.5 Glucose 91 92 Calcium 9.5 8.8 Magnesium 2.3 2.3 Total Bilirubin 0.9 0.8 AST 34 30 ALT 30 25 Alkaline Phosphatase 46 39 Troponin I High Sens 6.7 6.1 Total Protein 7.9 6.9 Albumin 4.6 4.0 Globulin 3.3 2.9 Albumin/Globulin Ratio 1.4 1.4 Lipase 15 TSH 1.768 Urine Color Yellow Urine Appearance Clear Urine pH 7.0 Ur Specific Union 1.012 Urine Protein Negative Urine Glucose (UA) Negative Urine Ketones Negative Urine Blood Negative Urine Nitrite Negative Urine Bilirubin Negative Urine Urobilinogen Negative Ur Leukocyte Esterase Negative Urine Comment Diagnostic Findings CXR 03/30/25: Comparison: Chest radiograph January 09, 2019. FINDINGS: LINES and TUBES: None CARDIOVASCULAR: Cardiac silhouette is mildly enlarged in size. Atherosclerosis thoracic aorta. LUNGS/PLEURA: No focal consolidation identified. Mild pulmonary vascular congestion. No significant pleural fluid. No discernible pneumothorax. No significant interval change in the reticular density over the right upper lobe, favor scarring. OSSEOUS/OTHER: No displaced acute osseous process identified. IMPRESSION: -- Mild congestive changes of the cardiovascular system. CTA CHEST 03/30/25: -- No pulmonary embolism identified to the segmental level. -- Cardiomegaly without right heart strain. CT HEAD 03/30/25: -- No intracranial abnormalities. VENOUS ULTRASOUND LLE 03/30/25: Deep veins: No DVT in the visualized common femoral, femoral, proximal deep femoral or popliteal veins. The veins demonstrate normal color flow, are normally compressible, with normal phasic flow and/or augmentation response. The interrogated calf veins are patent. Superficial veins: No thrombus in the saphenofemoral junction. Soft tissues: No acute findings. No popliteal cyst. IMPRESSION: -- No evidence for deep vein thrombosis involving the left lower extremity. Medications Administered Medication List Acetaminophen (Acetaminophen 325 Mg Tab) 650 mg PO Q4H PRN PRN Reason: pain/fever Stop: 04/30/25 01:20 Last Admin: 03/31/25 08:12 Dose: 650 mg Documented By: [facility] Bupropion HCl (Bupropion Sr 150 Mg Tabcr) 150 mg PO BID [facility] Stop: 04/30/25 01:20 Last Admin: 03/31/25 08:08 Dose: 150 mg Documented By: Admin: 03/31/25 02:28 Dose: 150 mg Documented By: BETTY Citalopram Hydrobromide (Citalopram 20 Mg Tab) 20 mg PO DAILY [facility] Stop: 04/30/25 08:59 Last Admin: 03/31/25 08:08 Dose: 20 mg Documented By: EDUARDO Enoxaparin Sodium (Enoxaparin Inj 40 Mg/0.4 Ml Syr) 40 mg SQ Q24H [facility] Stop: 04/30/25 01:20 Last Admin: 03/31/25 08:08 Dose: 40 mg Documented By: EDUARDO Lisinopril (Lisinopril 10 Mg Tab) 10 mg PO DAILY [facility] Stop: 04/30/25 08:59 Last Admin: 03/31/25 08:08 Dose: 10 mg Documented By: EDUARDO Oxybutynin Chloride (Oxybutynin Chloride Xl 5 Mg Tabcr) 10 mg PO DAILY [facility] Stop: 04/30/25 08:59 Last Admin: 03/31/25 08:08 Dose: 10 mg Documented By: EDUARDO Simvastatin (Simvastatin 40 Mg Tab) 40 mg PO DAILY [facility] Stop: 04/30/25 08:59 Last Admin: 03/31/25 08:08 Dose: 40 mg Documented By: EDUARDO Discontinued Medications Ioversol (Optiray 320 125ml) 118 ml IV ONCE ONE Stop: 03/30/25 19:33 Last Admin: 03/30/25 19:32 Dose: 118 ml Documented By: MARCIAL PG Care Time/CCT Total # of Minutes Spent Total Time Spent with Patient: Total time spent is greater than 50% in coordination of care (as documented) at patient's floor/unit and/or counseling patient:40 [place] [address] INT INP/OBS CARE 2/55MIN Patient Type New History Comprehensive Exam Comprehensive Medical Decision Making Moderate Complexity Diagnoses Syncope, unspecified syncope type R55 Syncope type: unspecified Near syncope R55 Primary hypertension I10 Hypertension type: primary hypertension Hyperlipidemia, unspecified hyperlipidemia type E78.5 Hyperlipidemia type: unspecified Cigarette smoker F17.210 Time Spent (min) 55 (1) Syncope Syncope type: unspecified Qualified Code(s): R55 - Syncope and collapse (3) Hypertension Hypertension type: primary hypertension Qualified Code(s): I10 - Essential (primary) hypertension (4) Hyperlipidemia Hyperlipidemia type: unspecified Qualified Code(s): E78.5 - Hyperlipidemia, unspecified
[2025-03-31 10:53] VITALS: PULSE 75
--- NOTE | 2025-03-31 11:21 | Electrocardiogram Report ---
Test Reason : Blood Pressure : */* mmHG Vent. Rate : 71 BPM Atrial Rate : 71 BPM P-R Int : 154 ms QRS Dur : 78 ms QT Int : 400 ms P-R-T Axes : 42 -2 51 degrees QTcB Int : 434 ms Normal sinus rhythm Minimal voltage criteria for LVH, may be normal variant ( R in aVL ) Borderline ECG When compared with ECG of 29-Nov-2018 15:38, No significant change was found Confirmed by Sergio Stewart ([id number]) on 03/31/2025 11:20:59 AM Referred By: Confirmed By: Sergio Stewart
--- NOTE | 2025-03-31 12:30 | Discharge Summary ---
Discharge Summary Date of Service March 31, 2025 Principal Dx & Hospital Course #1 = Principal Diagnosis (1) Syncope: Etiology of syncope is most probably due to patient's home-scheduled solifenacin 10mg PO daily, which is a highly anti-cholinergic drug, and which the patient reports that she has only taken for the past 2-3 months, and which was prescribed by a Urology Clinic PA-C to treat overactive bladder as patient complains of twice nightly bouts of enuresis and "I wake up in the morning and my bed is soaked and the urine valente my skin and causes sores on my butt." Patient subsequently reports to me that "solifenacin does not work as I am still wetting the bed." I subsequently advised the patient to stop taking solifenacin 10mg PO daily because (1) it does not treat her overactive bladder with twice nightly bouts of enuresis; (2) it is most likely the culprit responsible for patient's recurrent syncopal episodes, which the patient reports did NOT begin until AFTER patient started taking solifenacin 10mg PO daily. I subsequently advised the patient to start wearing a Depends diaper to bed and to change the Depends diaper at night at least once or twice a night in order to remain dry and to prevent skin breakdown, which can lead to ulcer formation. I also advised the patient to follow up with her Urology Clinic PA-C to consider alternative medication(s) such as mirabegron (Myrbetriq) or vigebron (Gemtesa), which are not anticholinergic at all, and instead, are selective beta 3 adrenergic receptor agonists, which also help to relax the detrusor smooth muscle of the bladder wall, thereby allowing the bladder to hold a larger volume of urine. Patient reports that she will comply with this recommendation. On a separate note, patient underwent orthostatic BP and HR testing (to see if patient was orthostatic, which is a common cause of syncope). Patient was NOT orthostatic by BP and HR testing: cf., supine BP 165/81, HR 71 (03/31/2025, 1:44am) cf., sitting BP 164/73, HR 83 (03/31/2025, 1:44am). cf., standing BP 160/94, HR 84 (03/31/2025, 1:44am). On a separate note, patient underwent troponin-I level testing and EKG testing (to see if patient had an acute RI, which is a cause of syncope). Patient did not have an acute RI: cf., troponin-I #1 6.7 pg/mL (03/30/2025, 5:25pm). cf., troponin-I #2 6.1 pg/mL (03/31/2025, 7:00am). cf., EKG (03/30/2025, 4:43pm): NSR @ 71, NE 154, QTC 434, no acute ST de pressions/elevations, TWI, or q waves (by my review). On a separate note, patient underwent U/A testing (to see if patient had an acute UTI, which is a cause of syncope). Patient did not have an acute UTI: cf., U/A (03/30/2025, 6:52pm): clear yellow urine, LE-, nitrite- On a separate note, patient underwent TSH testing (to see if patient was hypothyroid/hyperthyroid, which are cause(s) of syncope). Patient had a normal TSH: cf., TSH 1.768 uIU/mL (03/30/2025, 5:25pm). On a separate note, patient underwent portable CXR (to see if patient had acute CAP, which is a cause of syncope). Patient did not have an acute CAP: cf., Portable CXR (03/30/2025, 4:57pm): No infiltrate, effusion, pneumothorax, or pulmonary vascular congestion. Minimal cardiomegaly noted. On a separate note, patient underwent CTA chest (to see if patient had an acute PE, which is a cause of syncope). Patient did not have an acute PE: cf., CTA chest (03/30/2025, 6:40pm): No PE. Cardiomegaly with NO right heart strain. On a separate note, patient underwent CT brain without contrast (to see if patient had an acute CVA, which is a cause of syncope). Patient did not have an acute CVA: cf., CT brain without contrast (03/30/2025, 6:40pm): No acute bleed, mass, or midline shift. On a separate note, patient underwent LLE venous doppler (to see if patient had an acute LLE DVT, which is not a cause of syncope). Patient did not have an acute LLE DVT: cf., LLE venous doppler (03/30/2025, 11:18pm): No acute LLE DVT. Of note, I cannot fathom why this patient underwent such an extensive, expensive, and non-diagnostic workup for recurrent syncope when the culprit for her recurrent syncopal events over the past 2-3 months coincides temporally/chronologically with having started a highly anti-cholinergic medication solifenacin 10mg PO daily 2-3 months ago to treat overactive bladder with twice nightly bouts of enuresis. Patient was subsequently discharged back to her home on 03/31/2025 and advised to stop taking solifenacin 10mg PO daily immediately, permanently. Patient reports that she will comply with this recommendation. (2) Depression: Asymptomatic on bupropion 150mg PO bid and citalopram 20mg PO daily while in [facility] [address]. Patient will continue both home-scheduled medications on hospital discharge home on 03/31/2025. (3) Hypertension: Well-controlled with discharge BP 150/78 (03/31/2025, 10:52am) on lisinopril 10mg PO daily while in [facility] [address]. Patient will continue this home-scheduled medication on hospital discharge home on 03/31/2025. Plan 74 years old female with PMH of FULL CODE @ home, obesity with BMI 35.6 (height 154.5 cm, weight 88.2 kg), osteoarthritis, hyperlipidemia on simvastatin 40mg PO daily, HTN on lisinopril 10mg PO daily, major depression on bupropion 150mg PO bid and citalopram 20mg PO daily, and chronic urinary incontinence on anti-cholinergic solifenacin 10mg PO daily, who presented to [facility] [address] on 03/30/2025 for recurrent episodes of syncope. Initial Plan of Action in [facility] ER included: #Syncope - episode suggestive of presyncope in August with two episodes of synope on 03/30 while at another medical facility - echo was already done 2 weeks ago at [facility]; I did not see record in the chart for this; HIM consult placed to see if we can obtain this record - will monitor overnight on telemetry - pending orthostatics - CXR did show some congestive changes but pt is without SOB/hypoxia, will defer diuresis at this time - will consult cardiology but ultimately pt needs event monitor of some sort to assess cardiac state during these episodes #L leg swelling - although chronic per pt, d-dimer is elevated, will do L leg US to evaluate for DVT - CTA for PE is negative #Depression - continue home meds #HTN - continue home meds VTE ppx: lovenox Code status: for now pt would like resuscitation efforts but does not want intubation/ventilation, pt overall very unclear on wants but voices this is her decision for now, but would like time to think further on if she would truly want CPR or not, 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 Pt states that the start of her story of any real issues dates back to Only time 2023, months ago. She states no issues prior to that. She states she was at [employer] doing some holiday shopping and that when she was walking around the store she had a sudden onset of symptoms of nausea, diaphoresis, lightheadedness and feeling like she was going to pass out. She states she took deep breaths and the symptoms subsided so she made her way to the [employer] register. She states when she was at the register, her symptoms started back again. She states she then went out to her car to sit in with the air conditioning running on her face even though it was August at that time and quite cold out. She states symptoms subsided and she was able to drive home without issue and then has had no issues again until today. She states that these episodes in August felt different than her episodes today since the episodes today had no warning but was unsure if there could be any relation between them. She states she saw her PCP in January who noted a murmur and ordered an echo. She states she got the echo done 2 weeks ago at [facility] and states she was told it was normal. She states the episodes today were when she was taking her sister to [facility] for a procedure. She states she has not been sick recently. She states she has been keeping well hydrated. She states the episodes today both happened without any presyncopal symptoms, just a sudden black out episode for a few seconds. She denies incontinence. No muscle aches, just some shoulder pain from the fall which was scanned at [facility]. She states that after the first time she was monitored for a few hours at [facility] and then when walking around with the nurse for several minutes to see how she feels she had a second episode, prompting her to come in today. Right now, pt states she is feeling well, no chest pain or SOB. She denies hx of arrhythmias. No hx RI/CVA. No recent medication changes the last few months. She lives alone with her cat and is independent in all of her ADLs. No hx PE/DVT. She does note chronic L leg edema and states she needs to have an orthopedic surgery on her ankle at some point on that side. Swelling is not worse today. No fevers or chills. Discharge Exam Constitutional General: Comfortable, cooperative, coherent. Patient speaks in complete, fluent, and articulate sentences without pause, interruption, cough, or wheeze. HEENT: Normocephalic, atraumatic. Pupils equally round and reactive to light. Extra-ocular muscles intact. No nystagmus, gaze paresis, anisocoria, miosis, mydriasis, hyphema, scleral injection, conjunctivitis, or pterygium. No rhinorrhea. No otorrhea. No pharyngeal erythema, edema, or discharge. Neck: Supple, no stridor, bruit, or hepato-jugular reflux. No lid lag. No exophthalmos/proptosis. Jugular venous pressure is estimated to be 3 cm above the sternal angle of Thomas, which in turn, is 5 cm above the level of the right atrium; with jugular venous pressure estimated to be 8 cm, then, there is no jugular venous distention on 03/31/2025. Lymphatics: Negative for anterior/posterior cervical, supraclavicular, infraclavicular, axillary, epitrochlear, or inguinal adenopathy. Chest: Symmetric rise and fall with respirations. Non-tender to palpation. Lungs: Clear to auscultation and percussion. No audible expiratory wheeze, egophony, pectoriloquy, increase in tactile fremitus, or flatness/dullness to percussion at the bases. Heart: Regular rate. Regular rhythm. S1 and S2 noted. No S3 or S4 summation gallop. No tripartite friction rub. Grade III/ early systolic murmur @ LLSB without radiation to the carotids, axilla, or back, and which remains invariant in regards to the respiratory cycle. Abdomen: Soft, non-tender, non-distended. No rebound, guarding, Melendez's sign, or organomegaly. Bowel sounds auscultated in all 4 quadrants. Extremities: No clubbing, cyanosis, or edema in upper extremities or lower extremities bilaterally. 2+ pedal pulses bilaterally. Skin: No decubitus ulcer, exanthem, or enanthem. Genito-urinary: No urethral discharge. No peacock catheter. Neurology: Alert and oriented in regards to person, place, time, and situation. DTR+. 5/5 motor strength in all 4 extremities, both proximally and distally. No myoclonus, tremors, or tics. Psychiatry: No homicidal ideation. No suicidal ideation. No flat affect; smiles appropriately. Discharge Plan Discharge Items Patient Disposition: Home - Self-Care Reason For Visit: SYNCOPE Discharge Diagnosis: 1. Syncope, most probably vasovagal. Condition on Discharge: Fair Lifting: Gradually increase as tolerated Bathing: No limitations Exercise/Sports: Gradually increase as tolerated Driving/Machine Use: No limitations Weightbearing: Full weightbearing Non-emergency contact: Primary Care Provider Call non-emergency contact if: you have any medication questions Follow-up/Referrals: Janell Perea MD [Primary Care Provider] - 04/07/25 11:00 am Diet: Heart Healthy Addtl Attending Provider Instructions: 1. See your PCP Dr. Janell Perea to coordinate outpatient Holter monitor for recurrent syncope. Pending Studies at Discharge: Yes Studies:: 1. See your PCP Dr. Janell Perea to coordinate outpatient Holter monitor for recurrent syncope. 2. Stop taking solifenacin 10mg PO daily as this medication can cause syncope by its high anti-cholinergic activity. Stand-Alone Forms: My [facility], Smoking Cessation Medications and DC Order Prescriptions: Continued bupropion HCl 150 mg tablet sustained-release 12 hr 150 mg PO BID Qty: 180 2RF lisinopril 10 mg tablet 10 mg PO DAILY Qty: 90 3RF simvastatin 40 mg tablet 40 mg PO DAILY Qty: 90 3RF omega-3 fatty acids 1,000 mg capsule 1,000 mg PO DAILY Qty: 30 0RF triamcinolone acetonide 0.1 % cream 1 applic topical BID PRN (Reason: rash on hand) Qty: 15 1RF Rx Instructions: Use for no longer than 2 wks. citalopram 20 mg tablet 20 mg PO DAILY Discontinued cholecalciferol (vitamin D3) 10 mcg (400 unit) tablet 10 mcg PO DAILY Qty: 90 0RF solifenacin 10 mg tablet 10 mg PO DAILY ascorbic acid (vitamin C) [Vitamin C] 500 mg Tablet 500 mg PO QAM multivitamin Tablet 1 tab PO QAM Discharge Orders: Discharge Order (Routine); Ordered 03/31/25 Ordered By: Natanael Hanna Admission Data Admit Date/Time: 03/30/25 23:23 Attending Provider: Natanael Hanna Admit Provider: Margy Barron Primary Care Provider: Janell Perea Other Providers: Trung Fischer; Gregory Olivas Other Interventions: Discharge Summary Assessment (RN) Last Done: 03/31/25 10:52 Hospital Stay Data Consultations 03/30/25 22:04 ED Decision to Admit Stat 03/31/25 01:21 Consult Cardiology Routine HIM [Consult Health Information Management] Routine Diagnostic Imagining Performed 03/30/25 18:40 CT for pulmonary embolism PE [CT angio chest PE protocol] Stat CT head/brain wo con Stat 03/30/25 23:18 US venous doppler LE LT Stat Pending Results Patient Have Any Pending Studies at Discharge: Yes Discharge Instructions Given to Patient (Per Discharging Provider) 1. See your PCP Dr. Janell Perea to coordinate outpatient Holter monitor for recurrent syncope. Total Time Total Time Spent Total Time Spent (In Minutes): 35 minutes. Of this time period, 19 minutes were spent in coordinating patient's discharge. Coding Level of Care Code 38795 INP/OBS DISCH >30 MIN Diagnoses Syncope R55 Depression F32.9 Primary hypertension I10 Hypertension type: primary hypertension
== END 2025-03-31 12:04 | disposition home or self-care (01) ==
LOC: 2N 16:30 → ED 16:30 → SUATTDRO 23:23 → 2N 03-31 00:59